=== PATIENT | female | born 1955 | race African-American/Black ===

== ENCOUNTER 2018-06-17 13:46 | Observation (INO) | payer BC, OTHER ==
[2018-06-17 14:29] LABS: Absolute Lymphocytes (CBC) 1.8 K/uL (0.7-4.9); Absolute Monocytes 0.5 K/uL (0.1-1.3); Absolute Neutrophil 7.8 K/uL (1.8-8.0); Hematocrit 40.7 % (36.0-45.0); Lymphocytes % 17.8 % (15.3-44.8); MPV 9.7 fL (7.6-11.3); Monocytes % 4.5 % (3.3-12.3); RBC Red Blood Cell Count 4.92 M/uL (3.86-4.86)
[2018-06-17 14:36] LABS: Protime INR 1.12
[2018-06-17 14:56] LABS: ALT/SGPT 21 U/L (12-78); AST/SGOT 13 U/L (15-37); Albumin 3.7 g/dL (3.4-5.0); Alkaline Phosphatase 107 U/L (45-117); BUN Blood Urea Nitrogen 19 mg/dL (7-18); Bicarbonate 29 mmol/L (21-32); Bilirubin Direct 0.1 mg/dL (0-0.2); Bilirubin Total 0.4 mg/dL (0.2-1.0); Glucose Level 330 mg/dL (74-106); Magnesium 1.8 mg/dL (1.8-2.4); NT PRO-BNP 159 pg/mL (<125); Protein, Total 7.9 g/dL (6.4-8.2); Sodium Level 139 mmol/L (136-145); Troponin (Emerg Dept Use Only) < 0.02 ng/mL (0.0-0.045)
--- NOTE | 2018-06-17 15:06 | RAD REPORT ---
EXAM DESCRIPTION: RAD - Chest Single View - 06/17/2018 2:52 pm CLINICAL HISTORY: Back pain, epigastric pain COMPARISON: June 2015 TECHNIQUE: AP portable chest image was obtained 1446 hours . FINDINGS: No peripheral focal lung parenchymal process seen. Interstitial pattern is not substantial ly different from comparison when adjusting for technique differences. Baseline pattern could mask mi nimal interstitial edema or infiltrate. Heart and vasculature are normal. No measurable pleural effusion and no pneumothorax. No acute bony abnormality seen. No acute aortic findings suspected. IMPRESSION: Chest is not substantially different from June 2015 comparison. Baseline pattern could mask earliest interstitial edema or infiltrate.
[2018-06-17] MEDS ORDERED: MORPHINE 4 MG/ML SYR ONE (15:41)
[2018-06-17] MEDS ORDERED: INSULIN -REGULAR HUMAN 50 UNIT/0.5 ML ML ONE (15:41)
[2018-06-17] MEDS ORDERED: ONDANSETRON 4 MG/2 ML VIAL ONE (15:41)
[2018-06-17] MEDS ORDERED: KCL 20 MEQ/100 mL IVPB 20 MEQ/100 ML BAG IV ONE (15:42)
[2018-06-17] MEDS ORDERED: NA CHLORIDE 0.9% 1,000 ML ONE (15:42)
[2018-06-17] MEDS ORDERED: POTASSIUM 25 MEQ EFFERV TAB ONE (15:42)
--- NOTE | 2018-06-17 15:50 | RAD REPORT ---
EXAM DESCRIPTION: CT - Angio Aorta For Dissection - 06/17/2018 3:37 pm CLINICAL HISTORY: Chest pain radiating to the back. Abdominal distention;Pain;Dissection COMPARISON: No comparisons TECHNIQUE: CT angiography of the aorta was performed with MIPs. All CT scans are performed using dose optimization technique as appropriate and may include automated exposure control or mA/KV adjustment according to patient size. FINDINGS: A left aortic arch is present with normal branching pattern of the great vessels.No acute aortic finding is seen such as aneurysm, penetrating ulcer or dissection. The celiac axis, SMA, BOB and renal arteries are widely patent. No evidence of pulmonary embolism. The lungs are clear. The liver demonstrates no focal mass or biliary dilatation.Cholecystectomy clips.The spleen, pancreas , adrenal glands and kidneys are within normal limits for arterial phase imaging.Moderate fat contain ing umbilical hernia. No bowel obstruction, free fluid or abscess.Sigmoid diverticulosis diverticulitis. Normal appendix.No pathologic enlarged lymphadenopathy identified. No fracture or worrisome bone lesion seen.Lower lumbar degenerative changes are present. IMPRESSION: No acute aortic finding is demonstrated. Moderate fat containing umbilical hernia.
[2018-06-17] MEDS ORDERED: FAMOTIDINE 20 MG/2 ML VIAL IV ONE (16:00)
--- NOTE | 2018-06-17 16:29 | ER ---
Nurse's Notes [facility] Name: Eloise Flynn Age: 63 yrs Sex: Female : 1955 Arrival Date: 06/17/2018 Time: 13:48 Bed 18 Private MD: Finesse Dunn V Diagnosis: Chest pain, unspecified;Dysphagia;Abdominal tenderness;Essential (primary) hypertension;Obesity, unspecified;Type 2 diabetes mellitus;Hypokalemia Presentation: 06/17 13:52 Presenting complaint: Patient states: epigastric discomfort and mid-low back pain x 3 ss days. Transition of care: patient was not received from another setting of care. Onset of symptoms was June 14, 2018. Risk Assessment: Do you want to hurt yourself or someone else? Patient reports no desire to harm self or others. Initial Sepsis Screen: Does the patient meet any 2 criteria? No. Patient's initial sepsis screen is negative. Does the patient have a suspected source of infection? No. Patient's initial sepsis screen is negative. Care prior to arrival: None. 13:52 Method Of Arrival: Ambulatory ss 13:52 Acuity: MAIN 3 ss Triage Assessment: 13:55 General: Appears in no apparent distress. uncomfortable. General: Behavior is calm, hj cooperative, appropriate for age. Pain: Complains of pain in back and abdomen. GI: Reports upper abdominal pain. 13:55 EENT: No signs and/or symptoms were reported regarding the EENT system. Neuro: Level of hj Consciousness is awake, alert, obeys commands, Oriented to person, place, time, situation, Appropriate for age. Cardiovascular: Capillary refill < 3 seconds Patient's skin is warm and dry. Respiratory: Airway is patent Respiratory effort is even, unlabored, Respiratory pattern is regular, symmetrical. : No signs and/or symptoms were reported regarding the genitourinary system. Derm: No signs and/or symptoms reported regarding the dermatologic system. Musculoskeletal: No signs and/or symptoms reported regarding the musculoskeletal system. Historical: - Allergies: 13:53 PENICILLINS; ss - PMHx: 13:53 Hypertension; ss - PSHx: 13:53 Hysterectomy; Cholecystectomy; removal of cyst from left breast; ss - Immunization history:: Adult Immunizations up to date. - Social history:: Smoking status: Patient/guardian denies using tobacco. - Ebola Screening: : Patient denies exposure to infectious person Patient denies travel to an Ebola-affected area in the 21 days before illness onset. Screenin:55 Abuse screen: Denies threats or abuse. Denies injuries from another. Nutritional hj screening: No deficits noted. Tuberculosis screening: No symptoms or risk factors identified. Fall Risk None identified. Assessment: 13:55 Reassessment: see triage for assessment;. hj 13:56 GI: Bowel sounds present X 4 quads. hj 14:30 Reassessment: Patient and/or family updated on plan of care and expected duration. Pain hj level reassessed. Patient is alert, oriented x 3, equal unlabored respirations, skin warm/dry/pink. awaiting results and POC; Patient states feeling better. 15:30 Reassessment: Patient and/or family updated on plan of care and expected duration. Pain hj level reassessed. Patient is alert, oriented x 3, equal unlabored respirations, skin warm/dry/pink. awaiting POC;. 16:07 Reassessment: Patient and/or family updated on plan of care and expected duration. Pain hj level reassessed. Patient is alert, oriented x 3, equal unlabored respirations, skin warm/dry/pink. awaiting POC;. 18:08 Reassessment: Patient and/or family updated on plan of care and expected duration. Pain hj level reassessed. Patient is alert, oriented x 3, equal unlabored respirations, skin warm/dry/pink. PCP in room with family; Patient states feeling better. 18:21 Reassessment: Patient and/or family updated on plan of care and expected duration. Pain hj level reassessed. Patient is alert, oriented x 3, equal unlabored respirations, skin warm/dry/pink. awaiting room placement;. 19:04 Reassessment: Patient appears in no apparent distress at this time. Patient and/or ed1 family updated on plan of care and expected duration. Pain level reassessed. Patient is alert, oriented x 3, equal unlabored respirations, skin warm/dry/pink. Patient denies pain at this time. Vital Signs: 13:53 BP 189 / 125; Pulse 95; Resp 18; Temp 98.1(TE); Pulse Ox 98% on R/A; Weight 128.82 kg; ss Height 5 ft. 0 in. (152.40 cm); Pain 8/10; 14:30 BP 169 / 98; Pulse 87; Resp 18; Pulse Ox 100% on R/A; hj 15:30 BP 172 / 88; Pulse 85; Resp 18; Pulse Ox 100% on R/A; hj 16:08 BP 170 / 95; Pulse 85; Resp 18; Pulse Ox 100% on R/A; hj 17:00 BP 168 / 90; Pulse 87; Resp 18; Pulse Ox 100% on R/A; hj 17:22 BP 156 / 88; Pulse 75; Resp 18; Pulse Ox 100% on R/A; hj 18:09 BP 152 / 85; Pulse 74; Resp 18; Pulse Ox 100% on R/A; hj 18:20 BP 164 / 89; Pulse 78; Resp 18; Pulse Ox 100% on R/A; hj 19:04 BP 148 / 86; Pulse 80; Resp 20; Temp 98.1(O); Pulse Ox 100% on R/A; Pain 0/10; ed1 20:35 BP 163 / 88; Pulse 72; Resp 18; Temp 98.4(O); Pulse Ox 100% on R/A; Pain 4/10; ed1 13:53 Body Mass Index 55.46 (128.82 kg, 152.40 cm) ED Course: 13:48 Patient arrived in ED. mr 13:48 Finesse Dunn MD is Private Physician. mr 13:53 Triage completed. ss 13:53 Arm band placed on right wrist. ss 13:55 Mahesh Almaraz RN is Primary Nurse. hj 13:56 Patient has correct armband on for positive identification. Placed in gown. Bed in low hj position. Call light in reach. Side rails up X 1. 14:01 Barak Back MD is Attending Physician. niles 14:37 EKG done, by veterinary technician assistant. reviewed by Barak Back MD. at1 14:52 XRAY Chest (1 view) In Process Unspecified. EDMS 15:37 CT Aorta for Dissection In Process Unspecified. EDMS 15:51 No provider procedures requiring assistance completed. Patient did not have IV access hj during this emergency room visit. 16:26 Finesse Dunn MD is Hospitalizing Provider. niles 19:04 Primary Nurse role handed off by Mahesh Almaraz, SHELLI ed1 19:04 Lopez, Janny, RN is Primary Nurse. ed1 19:04 Resting quietly. Awaiting bed assignment. ed1 Administered Medications: 15:46 Drug: NS 0.9% 1000 ml Route: IV; Rate: 125 ml/hr; Site: left antecubital; hj 15:46 Drug: morphine 4 mg Route: IVP; Site: left antecubital; hj 16:47 Follow up: Response: No adverse reaction; Pain is decreased hj 15:46 Drug: Zofran 4 mg Route: IVP; Site: left antecubital; hj 16:35 Follow up: Response: No adverse reaction hj 16:36 Follow up: Response: No adverse reaction hj 15:46 Drug: Potassium Chloride 20 mEq Route: IV; Rate: per protocol; Site: left antecubital; hj 15:46 Drug: Potassium Effervescent Tablet 25 mEq Route: PO; hj 16:35 Follow up: Response: No adverse reaction hj 15:46 Drug: Pepcid 20 mg Route: IVP; Site: left antecubital; hj 16:35 Follow up: Response: No adverse reaction hj 15:47 Drug: Insulin Regular Human 6 units {Co-Signature: georgie (Mahesh Almaraz RN).} Route: IVP; jl7 Site: left antecubital; 16:35 Follow up: Response: No adverse reaction georgie Point of Care Testing: Blood Glucose: 17:00 Blood Glucose: 212 mg/dL; georgie Ranges: Outcome: 16:28 Decision to Hospitalize by Provider. [facility] 21:13 Admitted to Med/surg accompanied by tech, family with patient, via stretcher, room 211, ed1 with chart, Report called to SHELLI Caro 21:13 Condition: good 21:13 Discharge instructions given to patient, family, Instructed on the need for admit, Demonstrated understanding of instructions. 21:14 Patient left the ED. ed1 Signatures: Dispatcher [employer] EDBarak Saeed MD MD cha Rivera, Mary mr Smirch, Shelby, RN RN ss Riggs, Erika, RN RN ed1 Amelia Higgins, forming process line worker EKG Tat1 Mahesh Almaraz RN RN hj Leal, Jahala, RN RN jl7 Mahesh jacques
--- NOTE | 2018-06-17 16:29 | EDPHYS ---
Physician Documentation [facility] Name: Eloise Flynn Age: 63 yrs Sex: Female : 1955 Arrival Date: 06/17/2018 Time: 13:48 Bed 18 Private MD: Finesse Dunn V ED Physician Barak Back HPI: 06/17 15:24 This 63 yrs old Black Female presents to ER via Ambulatory with complaints of Abdominal niles Pain, Back Pain. 15:24 The patient presents with pain that is acute, that is chronic. The symptoms are located niles in the low back, lumbar area, left low back and right low back. Onset: The symptoms/episode began/occurred just prior to arrival. The pain does not radiate. Historical: - Allergies: 13:53 PENICILLINS; ss - PMHx: 13:53 Hypertension; ss - PSHx: 13:53 Hysterectomy; Cholecystectomy; removal of cyst from left breast; ss - Immunization history:: Adult Immunizations up to date. - Social history:: Smoking status: Patient/guardian denies using tobacco. - Ebola Screening: : Patient denies exposure to infectious person Patient denies travel to an Ebola-affected area in the 21 days before illness onset. ROS: 15:24 Eyes: Negative for injury, pain, redness, and discharge, ENT: Negative for injury, niles pain, and discharge, Neck: Negative for injury, pain, and swelling, Respiratory: Negative for shortness of breath, cough, wheezing, and pleuritic chest pain, : Negative for injury, bleeding, discharge, and swelling, MS/Extremity: Negative for injury and deformity, Skin: Negative for injury, rash, and discoloration, Neuro: Negative for headache, weakness, numbness, tingling, and seizure, Psych: Negative for depression, anxiety, suicide ideation, homicidal ideation, and hallucinations, Allergy/Immunology: Negative for hives, rash, and allergies, Endocrine: Negative for neck swelling, polydipsia, polyuria, polyphagia, and marked weight changes, Hematologic/Lymphatic: Negative for swollen nodes, abnormal bleeding, and unusual bruising. 15:24 Constitutional: Positive for malaise. 15:24 Cardiovascular: Positive for chest pain. 15:24 Respiratory: Negative for cough, dyspnea on exertion. 15:24 Abdomen/GI: Positive for abdominal pain, of the epigastric area, right upper quadrant and left upper quadrant. Exam: 15:24 Constitutional: This is a well developed, well nourished patient who is awake, alert, niles and in no acute distress. Head/Face: Normocephalic, atraumatic. Eyes: Pupils equal round and reactive to light, extra-ocular motions intact. Lids and lashes normal. Conjunctiva and sclera are non-icteric and not injected. Cornea within normal limits. Periorbital areas with no swelling, redness, or edema. ENT: Nares patent. No nasal discharge, no septal abnormalities noted. Tympanic membranes are normal and external auditory canals are clear. Oropharynx with no redness, swelling, or masses, exudates, or evidence of obstruction, uvula midline. Mucous membranes moist. Neck: Trachea midline, no thyromegaly or masses palpated, and no cervical lymphadenopathy. Supple, full range of motion without nuchal rigidity, or vertebral point tenderness. No Meningismus. Chest/axilla: Normal chest wall appearance and motion. Nontender with no deformity. No lesions are appreciated. Cardiovascular: Regular rate and rhythm with a normal S1 and S2. No gallops, murmurs, or rubs. Normal PMI, no JVD. No pulse deficits. Respiratory: Lungs have equal breath sounds bilaterally, clear to auscultation and percussion. No rales, rhonchi or wheezes noted. No increased work of breathing, no retractions or nasal flaring. Back: No spinal tenderness. No costovertebral tenderness. Full range of motion. Female : Normal external genitalia. Skin: Warm, dry with normal turgor. Normal color with no rashes, no lesions, and no evidence of cellulitis. MS/ Extremity: Pulses equal, no cyanosis. Neurovascular intact. Full, normal range of motion. Neuro: Awake and alert, GCS 15, oriented to person, place, time, and situation. Cranial nerves II-XII grossly intact. Motor strength 5/5 in all extremities. Sensory grossly intact. Cerebellar exam normal. Normal gait. Psych: Awake, alert, with orientation to person, place and time. Behavior, mood, and affect are within normal limits. 15:24 Abdomen/GI: Inspection: abdomen appears normal, Bowel sounds: normal, Palpation: mild abdominal tenderness, Liver: no appreciated palpable abnormalities, Hernia: not appreciated. Vital Signs: 13:53 BP 189 / 125; Pulse 95; Resp 18; Temp 98.1(TE); Pulse Ox 98% on R/A; Weight 128.82 kg; ss Height 5 ft. 0 in. (152.40 cm); Pain 8/10; 14:30 BP 169 / 98; Pulse 87; Resp 18; Pulse Ox 100% on R/A; hj 15:30 BP 172 / 88; Pulse 85; Resp 18; Pulse Ox 100% on R/A; hj 16:08 BP 170 / 95; Pulse 85; Resp 18; Pulse Ox 100% on R/A; hj 17:00 BP 168 / 90; Pulse 87; Resp 18; Pulse Ox 100% on R/A; hj 17:22 BP 156 / 88; Pulse 75; Resp 18; Pulse Ox 100% on R/A; hj 18:09 BP 152 / 85; Pulse 74; Resp 18; Pulse Ox 100% on R/A; hj 18:20 BP 164 / 89; Pulse 78; Resp 18; Pulse Ox 100% on R/A; hj 19:04 BP 148 / 86; Pulse 80; Resp 20; Temp 98.1(O); Pulse Ox 100% on R/A; Pain 0/10; ed1 20:35 BP 163 / 88; Pulse 72; Resp 18; Temp 98.4(O); Pulse Ox 100% on R/A; Pain 4/10; ed1 13:53 Body Mass Index 55.46 (128.82 kg, 152.40 cm) ss MDM: 14:01 Patient medically screened. [facility] 15:26 Data reviewed: vital signs, nurses notes, lab test result(s), EKG, radiologic studies, [facility] CT scan, plain films. 06/17 14:18 Order name: Basic Metabolic Panel; Complete Time: 15:21 06/17 14:18 Order name: CBC with Diff; Complete Time: 15:21 06/17 14:18 Order name: LFT's; Complete Time: 15:21 06/17 14:18 Order name: Magnesium; Complete Time: 15:21 06/17 14:18 Order name: NT PRO-BNP; Complete Time: 15:21 06/17 14:18 Order name: PT-INR; Complete Time: 15:21 06/17 14:18 Order name: Troponin (emerg Dept Use Only); Complete Time: 15:21 06/17 15:21 Order name: Lipase; Complete Time: 16:17 [facility] 06/17 15:21 Order name: Urine Culture [facility] 06/17 16:46 Order name: Urine Dipstick--Ancillary (enter results) 06/17 17:08 Order name: Urine Dipstick-Ancillary [facility] 06/17 18:25 Order name: Troponin I [facility] 06/17 18:46 Order name: Potassium [facility] 06/17 21:04 Order name: Potassium wi 06/17 13:55 Order name: EKG; Complete Time: 13:55 06/17 13:55 Order name: EKG - Nurse/Tech; Complete Time: 14:44 06/17 14:18 Order name: XRAY Chest (1 view); Complete Time: 15:21 06/17 14:18 Order name: Cardiac monitoring; Complete Time: 14:19 06/17 15:21 Order name: CT Aorta for Dissection; Complete Time: 16:17 [facility] 06/17 16:33 Order name: CONS Physician Consult [facility] 06/17 16:33 Order name: CONS Physician Consult [facility] 06/17 21:13 Order name: Potassium [facility] 06/17 14:18 Order name: EKG - Nurse/Tech; Complete Time: 14:43 06/17 14:18 Order name: IV Saline Lock; Complete Time: 14:19 06/17 14:18 Order name: Labs collected and sent; Complete Time: 14:19 06/17 14:18 Order name: O2 Per Protocol; Complete Time: 14:19 06/17 14:18 Order name: O2 Sat Monitoring; Complete Time: 14:19 06/17 15:21 Order name: Urine Dipstick-Ancillary (obtain specimen); Complete Time: 16:48 [facility] Administered Medications: 15:46 Drug: NS 0.9% 1000 ml Route: IV; Rate: 125 ml/hr; Site: left antecubital; hj 15:46 Drug: morphine 4 mg Route: IVP; Site: left antecubital; hj 16:47 Follow up: Response: No adverse reaction; Pain is decreased hj 15:46 Drug: Zofran 4 mg Route: IVP; Site: left antecubital; hj 16:35 Follow up: Response: No adverse reaction hj 16:36 Follow up: Response: No adverse reaction hj 15:46 Drug: Potassium Chloride 20 mEq Route: IV; Rate: per protocol; Site: left antecubital; hj 15:46 Drug: Potassium Effervescent Tablet 25 mEq Route: PO; hj 16:35 Follow up: Response: No adverse reaction hj 15:46 Drug: Pepcid 20 mg Route: IVP; Site: left antecubital; hj 16:35 Follow up: Response: No adverse reaction 15:47 Drug: Insulin Regular Human 6 units {Co-Signature: georgie (Mahesh Almaraz RN).} Route: IVP; jl7 Site: left antecubital; 16:35 Follow up: Response: No adverse reaction georgie Point of Care Testing: Blood Glucose: 17:00 Blood Glucose: 212 mg/dL; georgie Ranges: Critical Glucose Levels:Adult <50 mg/dl or >400 mg/dl <40 mg/dl or >180 mg/dl Disposition: 06/17/18 16:28 Hospitalization ordered by Finesse Dunn for Observation. Preliminary diagnosis are Chest pain, unspecified, Dysphagia, Abdominal tenderness, Essential (primary) hypertension, Obesity, unspecified, Type 2 diabetes mellitus, Hypokalemia. - Bed requested for Telemetry/MedSurg (observation). - Status is Observation. ed1 - Condition is Fair. - Problem is new. - Symptoms have improved. UTI on Admission? No Signatures: Dispatcher [employer] EDMS Barak Back MD MD cha Smirch, Shelby, RN RN ss Riggs, Erika, RN RN ed1 Mahesh Almaraz RN RN hj Leal, Jahala, RN RN jl7 Jessica Elias RN RN df Mahesh jacques Corrections: (The following items were deleted from the chart) 19:47 16:28 Hospitalization Ordered by Finesse Dunn MD for Observation. Preliminary diagnosis df is Chest pain, unspecified; Dysphagia; Abdominal tenderness; Essential (primary) hypertension; Obesity, unspecified; Type 2 diabetes mellitus; Hypokalemia. Bed requested for Telemetry/MedSurg (observation). Status is Observation. Condition is Fair. Problem is new. Symptoms have improved. UTI on Admission? No. niles 21:14 19:47 06/17/2018 16:28 Hospitalization Ordered by Finesse Dunn MD for Observation. ed1 Preliminary diagnosis is Chest pain, unspecified; Dysphagia; Abdominal tenderness; Essential (primary) hypertension; Obesity, unspecified; Type 2 diabetes mellitus; Hypokalemia. Bed requested for Telemetry/MedSurg (observation). Status is Observation. Condition is Fair. Problem is new. Symptoms have improved. UTI on Admission? No. df
[2018-06-17] MEDS ORDERED: ACETAMINOPHEN 325 MG TABLET PO PRN (16:32)
[2018-06-17] MEDS ORDERED: ONDANSETRON 4 MG/2 ML VIAL IV PRN (16:32)
[2018-06-17] MEDS ORDERED: SODIUM CHLORIDE 0.9% 10ML INJ IV PRN (16:33)
[2018-06-17] MEDS ORDERED: GLUCAGON 1 MG/VIAL IM PRN (16:34)
[2018-06-17] MEDS ORDERED: D50W 25 GM/50 ML SYRINGE IV PRN (16:34)
[2018-06-17] MEDS: NS KCL 20MEQ 20 MEQ/1,000 ML BAG IV SCH (17:00)
[2018-06-17 17:08] LABS: Urine Blood NEGATIVE (NEG); Urine Glucose 2+ (NEG); Urine Protein 1+ (NEG)
--- NOTE | 2018-06-17 18:29 | P.HP ---
Certification for Inpatient Patient admitted to: Observation With expected LOS: <2 Midnights Practitioner: I am a practitioner with admitting privileges, knowledge of patient current condition, hospital course, and medical plan of care. Services: Services provided to patient in accordance with Admission requirements found in Title 42 Section 412.3 of the Code of Federal Regulations Patient History Date of Service: 06/17/18 Reason for admission: BURNING PAIN RADIATING TO BACK History of Present Illness: MS. COSTA HAS BURNING CHEST PAIN RADIATING TO BACK FOR TWO DAYS. SHE CALLED DR. LUIS HER GI DOCTOR BUT HE HAS QUIT TAKING HER INSURANCE. SHE COMES TO ER. SHE HAS SOME NAUSEA AND VOMITING ABOUT 3 TIMES IN TWO DAYS. Allergies Penicillins Allergy (Severe, Verified 05/01/11 08:21) airway obstruction Home Medications: Atenolol 1 tab PO BEDTIME 06/25/15 Nisoldipine 1 tab PO DAILY 06/25/15 Olmesartan/Hydrochlorothiazide [Benicar Hct 40-12.5 mg Tablet] 1 tab PO DAILY Tramadol HCl 1 tab PO BID 06/25/15 Potassium Oral Tab [Klor-Con 10 mEq Tab*] 10 meq PO DAILY 90 Days tab 06/28/15 - Past Medical/Surgical History Diabetic: No -: HTN -: lap Marixa -: cyst removed from (L) breast -: hysterectomy - Family History Mother -: Hypertension, Diabetes, Stroke Father -: Heart disease Sister -: Heart disease, Diabetes Brother -: Heart disease, Cancer - Social History Alcohol use: No CD- Drugs: No Caffeine use: Yes Review of Systems 10-point ROS is otherwise unremarkable Gastrointestinal: Nausea, Vomiting, No Distention Physical Examination - Physical Exam General: Alert, Mild distress, Obese HEENT: Atraumatic, PERRLA, Mucous membr. moist/pink, EOMI, Sclerae nonicteric Neck: Supple, 2+ carotid pulse no bruit, No LAD, Without JVD or thyroid abnormality Respiratory: Clear to auscultation bilaterally, Normal air movement Cardiovascular: Regular rate/rhythm, Normal S1 S2 Gastrointestinal: Normal bowel sounds, Tenderness (EPIG MILD) Musculoskeletal: No tenderness Integumentary: No rashes Neurological: Normal gait, Normal speech, Normal strength at 5/5 x4 extr, Normal tone, Normal affect Lymphatics: No axilla or inguinal lymphadenopathy - Studies Laboratory Data (last 24 hrs) 06/17/18 14:20: Lipase 158 06/17/18 14:20: PT 13.2 H, INR 1.12 06/17/18 14:20: WBC 10.3, Hgb 13.8, Hct 40.7, Plt Count 299 06/17/18 14:20: Sodium 139, Potassium 3.0 L, BUN 19 H, Creatinine 0.98, Glucose 330 H, Magnesium 1.8, Total Bilirubin 0.4, AST 13 L, ALT 21, Alkaline Phosphatase 107 Assessment and Plan - Problems (Diagnosis) (1) Epigastric pain Current Visit: Yes Status: Acute Plan: MOSTLY FROM ACID, VS VIRAL SYNDROME RAISE PROTONIX IV BID. DC IN AM POSSIBLE. HER PAIN HAS LOW POSSIBILTY OF BEING CARDIAC IN ORIGIN. (2) GERD (gastroesophageal reflux disease) Current Visit: Yes Status: Acute Plan: IV PROTONIX Qualifiers: Esophagitis presence: with esophagitis Qualified Code(s): K21.0 - Gastro- esophageal reflux disease with esophagitis (3) Nausea & vomiting Current Visit: No Status: Acute Plan: SHOULD IMPROVE NO MECHANICAL ISSUES. - Advance Directives Does patient have a Living Will: No Does patient have a Durable POA for Healthcare: No
[2018-06-17] MEDS ORDERED: NS KCL 20MEQ 1,000 ML IV ONE (18:54)
[2018-06-17 22:10] VITALS: BMI 54.6
[2018-06-17] MEDS: cloNIDine HCl 0.1 MG TAB PO PRN (22:21)
[2018-06-17] MEDS: PANTOPRAZOLE 40 MG INJ IVP SCH (22:24)
[2018-06-17] MEDS: INSULIN -REGULAR HUMAN 50 UNIT/0.5 ML ML SQ SCH (22:53)
[2018-06-18] MEDS: MORPHINE 4 MG/ML SYR IV PRN ×3 (01:09→22:16)
[2018-06-18 05:12] LABS: Absolute Lymphocytes (CBC) 1.6 K/uL (0.7-4.9); Absolute Monocytes 0.4 K/uL (0.1-1.3); Basophils % 0.8 % (0-1.3); Eosinophils % 2.1 % (0-4.4); Hematocrit 36.1 % (36.0-45.0); Lymphocytes % 22.2 % (15.3-44.8); MPV 9.7 fL (7.6-11.3); Monocytes % 5.7 % (3.3-12.3); RBC Red Blood Cell Count 4.36 M/uL (3.86-4.86)
[2018-06-18 05:25] LABS: BUN Blood Urea Nitrogen 14 mg/dL (7-18); Bicarbonate 32 mmol/L (21-32); Glucose Level 151 mg/dL (74-106); Potassium 3.6 mmol/L (3.5-5.1); Sodium Level 145 mmol/L (136-145)
[2018-06-18] MEDS: NS KCL 20MEQ 20 MEQ/1,000 ML BAG IV SCH ×2 (06:55→13:00)
[2018-06-18] MEDS: INSULIN -REGULAR HUMAN 50 UNIT/0.5 ML ML SQ SCH ×4 (07:30→22:01)
--- NOTE | 2018-06-18 08:11 | RAD REPORT ---
EXAM DESCRIPTION: RAD - Chest Single View - 06/18/2018 6:43 am CLINICAL HISTORY: Chest Pain Chest pain. COMPARISON: Chest Single View dated 06/17/2018; Chest Pa And Lat (2 Views) dated 06/25/2015; CHEST SING LE VIEW dated 08/05/2014; CHEST SINGLE VIEW dated 04/06/2013 FINDINGS: Portable technique limits examination quality. The lungs are grossly clear. The heart is normal in size. No displaced fractures. IMPRESSION: No acute intrathoracic process suspected.
[2018-06-18] MEDS ORDERED: PANTOPRAZOLE 40 MG INJ IVP SCH (09:00)
[2018-06-18] MEDS: ASPIRIN EC 81 MG TAB PO SCH (09:00)
[2018-06-18] MEDS: PANTOPRAZOLE 40 MG INJ IVP SCH ×2 (09:22→22:15)
--- NOTE | 2018-06-18 09:31 | CON ---
History Of Present Illness: Mrs. Flynn is 63 years old. She came to the hospital with epigastric pa in. It is well below the xiphoid. She also has lower abdominal pain. It has been going on for beatrice ral days without any readmittance, and since being in the hospital, it is improved slightly. Her out patient medications did not include any kind of antacid, but she is getting IV Protonix 40 b.i.d. now . She does not have a history of heart disease. In 2011, a cardiac cath was normal; it was after a stress test was abnormal, so she has a history of a false-positive nuclear stress test. She does not have diabetes, dyslipidemia, never had myocardial infarction, stroke, not having chest pain, or abdo rosalie pain. She has a history of diverticulitis and diverticulosis. Home Medications: Atenolol, tramadol, nisoldipine, olmesartan, hydrochlorothiazide, and potassium ch loride. Allergies: SHE IS ALLERGIC TO PENICILLIN. Physical Examination: General: She is obese, alert, oriented, pleasant, cooperative, not in distress. Vital Signs: 5 feet tall, 280 pounds. HEENT: Normal. Lungs: Clear. Cardiac: Within normal limits. Abdomen: Soft. Extremities: Normal. Imaging: EKG does not show infarction, injury, or ischemia. Impression: My impression is that Mrs. Flynn is not having coronary artery disease or any symptoms t hat sound remotely like coronary artery disease. I am not going to recommend a cardiac workup at this time on Mrs. Flynn. RUTH/JIMMY Voice ID: [id number] Report ID: [id number]
[2018-06-18] MEDS: CIPROFLOXACIN 400mg IV 400 MG/200 ML BAG IV SCH ×2 (11:00→22:23)
[2018-06-18] MEDS ORDERED: MINERAL OIL ENEMA 135 ML BTL PR SCH (11:00)
--- NOTE | 2018-06-18 11:41 | EKG ---
Test Date: 2018-06-17 Test Time: 14:09:59 Metal Spray Operator: TERESA MEASUREMENT RESULTS: Intervals: Rate: 94 DE: 150 QRSD: 88 QT: 406 QTc: 507 Mcgrath: P: 36 DE: 150 QRS: -32 T: 23 INTERPRETIVE STATEMENTS: Sinus rhythm with occasional premature ventricular complexes and premature atrial complexes Left axis deviation Nonspecific ST abnormality Prolonged QT Abnormal ECG Compared to ECG 06/25/2015 12:46:14 Atrial premature complex(es) now present Ventricular premature complex(es) now present Left-axis deviation now present ST (T wave) deviation now present Prolonged QT interval now present Sinus arrhythmia no longer present Electronically Signed On 06-17-18 16:05:59 CDT by Ricardo Pagan
--- NOTE | 2018-06-18 11:43 | EKG ---
Test Date: 2018-06-18 Test Time: 08:06:20 Prizer Hand: SHARAN MEASUREMENT RESULTS: Intervals: Rate: 71 LA: 166 QRSD: 82 QT: 430 QTc: 467 [place]bury: P: 49 LA: 166 QRS: -25 T: -2 INTERPRETIVE STATEMENTS: Normal sinus rhythm Non specific T abnormality Abnormal ECG Compared to ECG 06/17/2018 14:09:59 Atrial premature complex(es) no longer present Ventricular premature complex(es) no longer present Electronically Signed On 06-18-18 10:00:43 CDT by Ricardo Pagan
--- NOTE | 2018-06-18 13:00 | P.PN ---
Subjective Date of Service: 06/18/18 Chief Complaint: DIFFUSE ABDOMEN PAIN. Subjective: No new changes Review of Systems 10-point ROS is otherwise unremarkable General: Weakness, Malaise Gastrointestinal: Abdominal Pain Physical Examination - Vital Signs Temperature: 97.1 F Blood Pressure: 137/74 Pulse: 65 Respirations: 16 Pulse Ox (%): 97 - Physical Exam General: Alert HEENT: Atraumatic, PERRLA, EOMI Neck: Supple, JVD not distended Respiratory: Clear to auscultation bilaterally, Normal air movement Cardiovascular: Regular rate/rhythm, Normal S1 S2 Gastrointestinal: Tenderness (DIFFUSE MILD TO MODERATE.) Musculoskeletal: No tenderness Integumentary: No rashes Neurological: Normal speech, Normal tone, Normal affect Lymphatics: No axilla or inguinal lymphadenopathy - Studies Laboratory Data (last 24 hrs) 06/17/18 14:20: Lipase 158 06/17/18 14:20: PT 13.2 H, INR 1.12 06/17/18 14:20: WBC 10.3, Hgb 13.8, Hct 40.7, Plt Count 299 06/17/18 14:20: Sodium 139, Potassium 3.0 L, BUN 19 H, Creatinine 0.98, Glucose 330 H, Magnesium 1.8, Total Bilirubin 0.4, AST 13 L, ALT 21, Alkaline Phosphatase 107 Medications List Reviewed: Yes Assessment And Plan - Current Problems (Diagnosis) (1) Epigastric pain Current Visit: Yes Status: Acute Plan: MOSTLY FROM ACID, VS VIRAL SYNDROME RAISE PROTONIX IV BID. DC IN AM POSSIBLE. HER PAIN HAS LOW POSSIBILTY OF BEING CARDIAC IN ORIGIN. (2) GERD (gastroesophageal reflux disease) Current Visit: Yes Status: Acute Plan: IV PROTONIX Qualifiers: Esophagitis presence: with esophagitis Qualified Code(s): K21.0 - Gastro- esophageal reflux disease with esophagitis (3) Nausea & vomiting Current Visit: No Status: Acute Plan: SHOULD IMPROVE NO MECHANICAL ISSUES. (4) Diffuse abdominal pain Current Visit: Yes Status: Acute Plan: DIVERICULITIS POSSIBLE. I TALKED TO DR DOYLE TO RULE OUT DIVERTICULITIS. HE TOLD ME YES- LOOKS LIKE LOTS OF DIVERTICULOSIS BUT NO DIVERTICULITIS. CELIAC AND MESENTERIC ARTERIES ARE GOOD.
[2018-06-18] MEDS: METRONIDAZOLE 500mg IVPB 500 MG/100 ML BAG IV SCH ×2 (15:00→21:57)
[2018-06-18] MEDS: ATENOLOL 50 MG TAB PO SCH (22:17)
[2018-06-19] MEDS: NS KCL 20MEQ 20 MEQ/1,000 ML BAG IV SCH ×3 (01:05→19:00)
[2018-06-19] MEDS: METRONIDAZOLE 500mg IVPB 500 MG/100 ML BAG IV SCH ×2 (08:11→21:42)
[2018-06-19] MEDS: CIPROFLOXACIN 400mg IV 400 MG/200 ML BAG IV SCH ×2 (08:12→21:42)
[2018-06-19] MEDS: INSULIN -REGULAR HUMAN 50 UNIT/0.5 ML ML SQ SCH ×4 (08:37→21:41)
[2018-06-19] MEDS ORDERED: VALSARTAN 160 MG TAB PO SCH (09:00)
[2018-06-19] MEDS: NISOLDIPINE PO SCH (09:00)
[2018-06-19] MEDS: PANTOPRAZOLE 40 MG INJ IVP SCH ×2 (11:01→22:22)
[2018-06-19] MEDS ORDERED: NA CHLORIDE 0.9% 1,000 ML ONE (11:41)
[2018-06-19] MEDS ORDERED: PROPOFOL 200 MG/20 ML VIAL IV ONE (13:21)
[2018-06-19] MEDS ORDERED: LIDOCAINE 1% MPF 5 ML VIAL ONE (13:21)
--- NOTE | 2018-06-19 13:23 | ENDO RPT ---
[address], [address] EGD PROCEDURE REPORT EXAM DATE: 06/19/2018 PATIENT NAME: Eloise Flynn MR#: [id number] BIRTHDATE: 1955 ATTENDING: Miguelito Almeida Dr STATUS: inpatient - [facility] DIRECTOR: Sarah Davis RN and Kelsy Patterson INDICATIONS: The patient is a 63 yr old Female here for an EGD due to mid epigastric abdominal pain, nausea and vomiting, GERD, and chest pain PROCEDURE PERFORMED: EGD with biopsy MEDICATIONS: Per Anesthesia. TOPICAL ANESTHETIC: none CONSENT: The patient understands the risks and benefits of the procedure and understands that these risks include, but are not limited to: sedation, allergic reaction, infection, perforation and/or bleeding. Alternative means of evaluation and treatment include, among others: physical exam, x-rays, and/or surgical intervention. The patient elects to proceed with this endoscopic procedure. DESCRIPTION OF PROCEDURE: During intra-op preparation period all mechanical medical equipment was checked for proper function. Hand hygiene and appropriate measures for infection prevention was taken. Procedure, possible complications, and alternatives including but not limited to the possibility of bleeding, perforation, tear, infection, sepsis, need for surgery, need for blood transfusion, and anesthesia related complications were explained to the patient. After the risks, benefits and alternatives of the procedure were thoroughly explained, Informed consent was verified, confirmed and timeout was successfully executed by the treatment team. The patient was placed in the left lateral position. The patient was anesthetized with topical anesthesia. Through the anesthetized oropharyngeal area, the scope was passed without any difficulty. The [id number] ([id number]) endoscope was introduced through the mouth and advanced to the second portion of the duodenum. Retroflexed views revealed no abnormalities. The gastroscope was then slowly withdrawn and removed. A small sliding hiatal hernia was found. Mild to moderate gastritis was found in the body and the antrum of the stomach. Multiple biopsies were obtained and sent to pathology. ADVERSE EVENTS: There were no complications. IMPRESSIONS: 1. Small sliding hiatal hernia 2. Mild to moderate gastritis in the body and the antrum of the stomach, s/p biopsies RECOMMENDATIONS: 1. await biopsy results 2. acid suppression therapy REPEAT EXAM: Miguelito Almeida Dr eSigned: Miguelito Almeida Dr 06/19/2018 1:22 PM cc: Finesse Dunn CPT CODES: ICD9 CODES: PATIENT NAME: Eloise Flynn MR#: [id number]
[2018-06-19] MEDS: MORPHINE 4 MG/ML SYR IV PRN (14:50)
[2018-06-19] MEDS: METOCLOPRAMIDE 10 MG/2mL INJ IV SCH ×2 (14:51→17:44)
[2018-06-19] MEDS: VALSARTAN 80 MG TAB PO SCH (14:51)
[2018-06-19] MEDS: POTASSIUM CL SA 10 MEQ TAB PO SCH (14:52)
[2018-06-19] MEDS: ASPIRIN EC 81 MG TAB PO SCH (14:52)
[2018-06-19] MEDS: PANTOPRAZOLE 40MG TABLET PO SCH (14:52)
[2018-06-19] MEDS: hydroCHLOROthiazide 12.5 MG CAP PO SCH (14:52)
[2018-06-19] MEDS ORDERED: MAGNESIUM CITRATE 300 ML BOT PO SCH (15:00)
[2018-06-19] MEDS ORDERED: GOLYTELY 4000 ML PO SCH (15:00)
--- NOTE | 2018-06-19 21:27 | P.PN ---
Subjective Date of Service: 06/19/18 Chief Complaint: DIFFUSE ABDOMEN PAIN. Subjective: Improving SHE IS FEELING BETTER. DR GIBBOSN WANTED TO DO EGD. DISCHARGE DEPENDS ON HIM NOW. HE DOES NOT TAKE HER INSURANCE SO SHE WILL HAVE TO FIND A NEW GI DOCTOR. Review of Systems 10-point ROS is otherwise unremarkable Gastrointestinal: Nausea Physical Examination - Vital Signs Temperature: 97.4 F Blood Pressure: 141/63 Pulse: 56 Respirations: 16 Pulse Ox (%): 100 - Physical Exam General: Alert, Mild distress, Obese HEENT: Atraumatic, PERRLA, EOMI Neck: Supple, JVD not distended Respiratory: Clear to auscultation bilaterally, Normal air movement Cardiovascular: Regular rate/rhythm, Normal S1 S2 Gastrointestinal: Normal bowel sounds, No tenderness Musculoskeletal: No tenderness Integumentary: No rashes Neurological: Normal speech, Normal tone, Normal affect Lymphatics: No axilla or inguinal lymphadenopathy - Studies Medications List Reviewed: Yes Assessment And Plan - Current Problems (Diagnosis) (1) Epigastric pain Current Visit: Yes Status: Acute Plan: MOSTLY FROM ACID, VS VIRAL SYNDROME RAISE PROTONIX IV BID. DC IN AM POSSIBLE. HER PAIN HAS LOW POSSIBILTY OF BEING CARDIAC IN ORIGIN. MILD TO MODERATE GASTRITIS SHE IS ALREADY ON PROTONIX IV BID. SHE IS STABLE. I HAD WRITTEN DISCHARGE ORDERS WITH ORAL ABX. DC PLAN PER DR. LUIS. (2) GERD (gastroesophageal reflux disease) Current Visit: Yes Status: Acute Plan: IV PROTONIX Qualifiers: Esophagitis presence: with esophagitis Qualified Code(s): K21.0 - Gastro- esophageal reflux disease with esophagitis (3) Nausea & vomiting Current Visit: No Status: Acute Plan: SHOULD IMPROVE NO MECHANICAL ISSUES. (4) Diffuse abdominal pain Current Visit: Yes Status: Acute Plan: DIVERICULITIS POSSIBLE. I TALKED TO DR DOYLE TO RULE OUT DIVERTICULITIS. HE TOLD ME YES- LOOKS LIKE LOTS OF DIVERTICULOSIS BUT NO DIVERTICULITIS. CELIAC AND MESENTERIC ARTERIES ARE GOOD.
[2018-06-19] MEDS: ATENOLOL 50 MG TAB PO SCH (21:41)
[2018-06-20] MEDS: METOCLOPRAMIDE 10 MG/2mL INJ IV SCH (00:36)
[2018-06-20] MEDS: NS KCL 20MEQ 20 MEQ/1,000 ML BAG IV SCH ×2 (03:43→15:00)
[2018-06-20] MEDS: INSULIN -REGULAR HUMAN 50 UNIT/0.5 ML ML SQ SCH ×3 (07:30→16:30)
[2018-06-20] MEDS: PANTOPRAZOLE 40MG TABLET PO SCH (08:34)
[2018-06-20] MEDS: POTASSIUM CL SA 10 MEQ TAB PO SCH (08:34)
[2018-06-20] MEDS: PANTOPRAZOLE 40 MG INJ IVP SCH (08:34)
[2018-06-20] MEDS: hydroCHLOROthiazide 12.5 MG CAP PO SCH (08:35)
[2018-06-20] MEDS: VALSARTAN 80 MG TAB PO SCH (08:35)
[2018-06-20] MEDS: cloNIDine HCl 0.1 MG TAB PO PRN (08:35)
[2018-06-20] MEDS: METRONIDAZOLE 500mg IVPB 500 MG/100 ML BAG IV SCH (08:36)
[2018-06-20] MEDS: CIPROFLOXACIN 400mg IV 400 MG/200 ML BAG IV SCH (08:37)
[2018-06-20] MEDS: ASPIRIN EC 81 MG TAB PO SCH (08:38)
[2018-06-20] MEDS: NISOLDIPINE PO SCH (08:39)
[2018-06-20] MEDS ORDERED: NA CHLORIDE 0.9% 1,000 ML ONE (11:58)
[2018-06-20] MEDS ORDERED: LIDOCAINE 1% MPF 5 ML VIAL ONE (12:13)
[2018-06-20] MEDS ORDERED: PROPOFOL 200 MG/20 ML VIAL IV ONE (12:13)
--- NOTE | 2018-06-20 12:22 | ENDO RPT ---
[address], [address] COLONOSCOPY PROCEDURE REPORT EXAM DATE: 06/20/2018 PATIENT NAME: Eloise Flynn MR #: [id number] BIRTHDATE: 1955 ATTENDING: Miguelito Almeida Dr STATUS: outpatient CONTINUOUS LINTER DRIER OPERATOR: Norma Tirado RN and Kelsy Patterson INDICATIONS: The patient is a 63 yr old Female here for a colonoscopy due to abdominal pain and family history of colon cancer PROCEDURE PERFORMED: Colonoscopy MEDICATIONS: Per Anesthesia. ESTIMATED BLOOD LOSS: None CONSENT: The patient understands the risks and benefits of the procedure and understands that these risks include, but are not limited to: sedation, allergic reaction, infection, perforation and/or bleeding. Alternative means of evaluation and treatment include, among others: physical exam, x-rays, and/or surgical intervention. The patient elects to proceed with this endoscopic procedure. DESCRIPTION OF PROCEDURE: During intra-op preparation period all mechanical medical equipment was checked for proper function. Hand hygiene and appropriate measures for infection prevention was taken. Procedure, possible complications, alternatives including, but not limited to possibility of bleeding, perforation, tear, infection, sepsis, need for surgery, need for blood transfusion, were explained to the patient. After the risks, benefits and alternatives of the procedure were thoroughly explained, Informed consent was verified, confirmed and timeout was successfully executed by the treatment team. The patient was placed in the left lateral position. A digital rectal exam was performed and revealed no abnormalities of the rectum. After appropriate level of anesthesia, the scope was passed. The [id number] ([id number]) endoscope was introduced through the anus and advanced to the proximal transverse colon. The quality of the prep was fair. The instrument was then slowly withdrawn as the colon was fully examined. Scope withdrawal time was 7 minutes. COLON FINDINGS: Moderate diverticulosis was noted throughout the entire examined colon. No bleeding was noted from the diverticulosis. Small internal hemorrhoids were found. Retroflexed views revealed small hemorrhoids. The scope was then completely withdrawn from the patient and the procedure terminated. ADVERSE EVENTS: There were no complications. IMPRESSIONS: 1. Moderate diverticulosis throughout the entire examined colon, predominantly in the sigmoid colon 2. Small internal hemorrhoids 3. Intubation to proximal transverse colon, stopping there due to probability of LLQ/RLQ pain being due to mild diverticulitis (could worsen from pressure of on IV antibiotics RECOMMENDATIONS: continue IV antibiotics RECALL: Return in 6 week(s) for Colonoscopy. Miguelito Almeida Dr eSigned: Miguelito Almeida Dr 06/20/2018 12:21 PM cc: Finesse Dunn CPT CODES: ICD9 CODES: PATIENT NAME: Eloise Flynn MR#: [id number]
[2018-06-20 12:55] VITALS: O2SAT 99
--- NOTE | 2018-06-20 17:37 | P.DS ---
Admission Date: 06/17/18 Discharge Date: 06/20/18 Disposition: ROUTINE DISCHARGE Reason for Admission: DIFFUSE ABDOMEN PAIN. - Problems (1) Epigastric pain Current Visit: Yes Status: Acute (2) GERD (gastroesophageal reflux disease) Current Visit: Yes Status: Acute Qualifiers: Esophagitis presence: with esophagitis Qualified Code(s): K21.0 - Gastro- esophageal reflux disease with esophagitis (3) Nausea & vomiting Current Visit: No Status: Acute (4) Diffuse abdominal pain Current Visit: Yes Status: Acute Brief History of Present Illness: MS. COSTA HAS BURNING CHEST PAIN RADIATING TO BACK FOR TWO DAYS. SHE CALLED DR. LUIS HER GI DOCTOR BUT HE HAS QUIT TAKING HER INSURANCE. SHE COMES TO ER. SHE HAS SOME NAUSEA AND VOMITING ABOUT 3 TIMES IN TWO DAYS. MS COSTA IS LOT BETTER. SHE IS NOT TAKING PROTONIX SHE HAS BUT NOW SHE WILL. I STOPPED KCL AND ADDED TO SPIRONOLACTONE KCL CAN IRRITANTE THE STOMACH. SHE IS STABLE TO GO HOME. Vital Signs/Physical Exam: Temp Pulse Resp BP Pulse Ox 98.8 F 64 18 150/45 H 98 06/20/18 12:34 06/20/18 12:34 06/20/18 12:34 06/20/18 12:34 06/20/18 12:00 Laboratory Data at Discharge: WBC 7.3 K/uL (4.3-10.9) D 06/18/18 04:29 Hgb 11.8 g/dL (12.0-15.0) L 06/18/18 04:29 Hct 36.1 % (36.0-45.0) 06/18/18 04:29 Plt Count 242 K/uL (152-406) 06/18/18 04:29 PT 13.2 SECONDS (9.5-12.5) H 06/17/18 14:20 INR 1.12 06/17/18 14:20 Sodium 145 mmol/L (136-145) 06/18/18 04:29 Potassium 3.6 mmol/L (3.5-5.1) 06/18/18 04:29 BUN 14 mg/dL (7-18) 06/18/18 04:29 Creatinine 0.68 mg/dL (0.55-1.3) 06/18/18 04:29 Glucose 151 mg/dL (74-106) H 06/18/18 04:29 Magnesium 1.8 mg/dL (1.8-2.4) 06/17/18 14:20 Total Bilirubin 0.4 mg/dL (0.2-1.0) 06/17/18 14:20 AST 13 U/L (15-37) L 06/17/18 14:20 ALT 21 U/L (12-78) 06/17/18 14:20 Alkaline Phosphatase 107 U/L (45-117) 06/17/18 14:20 Troponin I < 0.02 ng/mL (0.0-0.045) 06/17/18 23:49 Lipase 158 U/L (73-393) 06/17/18 14:20 Home Medications: Atenolol 1 tab PO BEDTIME 06/25/15 Nisoldipine 1 tab PO DAILY 06/25/15 Olmesartan/Hydrochlorothiazide [Benicar Hct 40-12.5 mg Tablet] 1 tab PO DAILY Pantoprazole Sodium [Protonix] 40 mg PO DAILY 06/18/18 Ciprofloxacin HCl [Cipro 500 MG Tablet] 500 mg PO BID #20 tab 06/19/18 metroNIDAZOLE [Flagyl] 500 mg PO Q8H #30 tablet 06/19/18 Pantoprazole [Protonix Tab*] 40 mg PO DAILY #90 tab 06/20/18 Spironolactone [Aldactone*] 25 mg PO DAILY #90 tab 06/20/18 New Medications: Ciprofloxacin HCl [Cipro 500 MG Tablet] 500 mg PO BID #20 tab metroNIDAZOLE [Flagyl] 500 mg PO Q8H #30 tablet Pantoprazole [Protonix Tab*] 40 mg PO DAILY #90 tab Spironolactone [Aldactone*] 25 mg PO DAILY #90 tab Followup: ElleMiguelito MD [ASSOCIATE-ACTIVE - CAN ADMIT] -
[2018-06-20 18:21] VITALS: BP 142/68; TEMP 97.6
== END 2018-06-20 18:20 | disposition home or self-care (01) ==
LOC: ER 13:46 → ERHOLD 16:29 → 2ND 20:54
PROVIDERS: ADMIT Internal Medicine; ATTEND Internal Medicine
PROC: 0DJ08ZZ Inspection of Upper Intestinal Tract, Via Natural or Artificial Opening Endoscopic (ICD-10-PCS; 2018-06-19)
PROC: 0DB98ZX Excision of Duodenum, Via Natural or Artificial Opening Endoscopic, Diagnostic (ICD-10-PCS; principal; 2018-06-19 09:45)
PROC: 0DJD8ZZ Inspection of Lower Intestinal Tract, Via Natural or Artificial Opening Endoscopic (ICD-10-PCS; 2018-06-20)
DX: K29.70 Gastritis, unspecified, without bleeding (principal); K57.90 Diverticulosis of intestine, part unspecified, without perforation or abscess without bleeding; K44.9 Diaphragmatic hernia without obstruction or gangrene; K21.0 Gastro-esophageal reflux disease with esophagitis; R11.2 Nausea with vomiting, unspecified
CPT/HCPCS: 36415; 71045; 71275; 74175; 80048; 80076; 81003; 82962; 83690; 83735; 83880; 84132; 84484; 85025; 85610; 87086; 87088; 88305; 88312; 93005; 96374; 96375; 99285; C9113; G0378; J0744; J2405; J2704; J2765; J7030; Q9967

== ENCOUNTER 2020-12-27 07:03 | Emergency (ER) | payer BC ==
[2020-12-27 08:11] LABS: Absolute Lymphocytes (CBC) 1.4 K/uL (0.7-4.9); Basophils % 0.9 % (0-1.3); Hematocrit 38.6 % (36.0-45.0); Lymphocytes % 15.8 % (15.3-44.8); MPV 8.6 fL (7.6-11.3); RBC Red Blood Cell Count 4.56 M/uL (3.86-4.86)
[2020-12-27 08:17] LABS: Albumin 3.6 g/dL (3.4-5.0); Bilirubin Direct 0.2 mg/dL (0-0.2); Bilirubin Total 0.5 mg/dL (0.2-1.0); Potassium 3.7 mmol/L (3.5-5.1); Protein, Total 7.8 g/dL (6.4-8.2)
--- NOTE | 2020-12-27 08:45 | RAD REPORT ---
EXAM DESCRIPTION: CT - FC CLINICAL HISTORY: orbital infection vs sinus COMPARISON: No comparisons TECHNIQUE: Axial 2 mm thick images of the face were obtained with sagittal and coronal reconstructio n images. All CT scans are performed using dose optimization technique as appropriate and may include automated exposure control or mA/KV adjustment according to patient size. FINDINGS: No acute facial bone fracture is seen.The mandible is intact. Preseptal edema involving the left orbit. No fluid collections identified. No soft tissue gas. The in traconal soft tissues are unremarkable.The paranasal sinuses and mastoids are clear. IMPRESSION: Preseptal edema anterior to the left orbit which may represent a cellulitis. No other ac [place] findings are identified.
--- NOTE | 2020-12-27 09:42 | EDPHYS ---
Physician Documentation [facility] Name: Eloise Flynn Age: 65 yrs Sex: Female : 1955 Arrival Date: 12/27/2020 Time: 07:09 Bed 23 Private MD: ED Physician Rayna Benitez HPI: 12/27 07:41 This 65 yrs old Black Female presents to ER via Ambulatory with complaints of Cough, sp3 Sinus Congestion, Eye Swelling, Ear Pain, Blurred Vision. 07:41 Is a 5-year-old female with a history of hypertension presents with chief complaint sp3 left eye pain, swelling, mild itching for the last 2 days. Patient is also recovering from an upper respiratory infection for which she saw her PCP and had a negative COVID-19 test was placed on azithromycin standard pack for which she is on the last day today. Patient reports mild resolution of symptoms but presents today mainly for the left eye pain. She states that it could "be a bug bite" but does not distinctly remember an insect bite. She also states that she has had sinus infections in the past and feels like the pain may be sinus related. She denies any supratentorial headache, neck pain, fever, shortness of breath, chest pain, abdominal pain, nausea, vomiting, diarrhea, rash anywhere else, history of shingles, neuro symptoms, or any other symptoms on ROS at this time. Remainder of ROS is negative.. Historical: - Allergies: 07:20 PENICILLINS; aa5 - Home Meds: 07:20 Singulair Oral [Active]; metformin 1,000 mg oral tab 2 times per day [Active]; Bromfed aa5 DM oral [Active]; Xyzal oral [Active]; Azithromycin Oral [Active]; Atenolol Oral [Active]; spironolactone 25 mg Oral tab once daily [Active]; olmesartan-hydrochlorothiazide 40-12.5 mg oral tab once daily [Active]; nisoldipine 34 mg oral Tb24 once daily [Active]; - PMHx: 07:20 Hypertension; Diabetes mellitus; Asthma; aa5 - Immunization history:: Client reports receiving the 2nd dose of the Covid vaccine. - Social history:: Smoking status: Patient denies any tobacco usage or history of. ROS: 07:43 Constitutional: Negative for fever, chills, and weight loss, Neck: Negative for injury, sp3 pain, and swelling, Cardiovascular: Negative for chest pain, palpitations, and edema, Abdomen/GI: Negative for abdominal pain, nausea, vomiting, diarrhea, and constipation, Back: Negative for injury and pain, Skin: Negative for injury, rash, and discoloration, Neuro: Negative for headache, weakness, numbness, tingling, and seizure, Psych: Negative for depression, anxiety, suicide ideation, homicidal ideation, and hallucinations, Allergy/Immunology: Negative for hives, rash, and allergies. 07:43 All other systems are negative. Exam: 07:44 Constitutional: This is a well developed, well nourished patient who is awake, alert, sp3 and in no acute distress. Head/Face: Normocephalic, atraumatic. Neck: Trachea midline, no thyromegaly or masses palpated, and no cervical lymphadenopathy. Supple, full range of motion without nuchal rigidity, or vertebral point tenderness. No Meningismus. Chest/axilla: Normal chest wall appearance and motion. Nontender with no deformity. No lesions are appreciated. Cardiovascular: Regular rate and rhythm with a normal S1 and S2. No gallops, murmurs, or rubs. Normal PMI, no JVD. No pulse deficits. Respiratory: Lungs have equal breath sounds bilaterally, clear to auscultation and percussion. No rales, rhonchi or wheezes noted. No increased work of breathing, no retractions or nasal flaring. Abdomen/GI: Soft, non-tender, with normal bowel sounds. No distension or tympany. No guarding or rebound. No evidence of tenderness throughout. Back: No spinal tenderness. No costovertebral tenderness. Full range of motion. Neuro: Awake and alert, GCS 15, oriented to person, place, time, and situation. Cranial nerves II-XII grossly intact. Motor strength 5/5 in all extremities. Sensory grossly intact. Cerebellar exam normal. Normal gait. Psych: Awake, alert, with orientation to person, place and time. Behavior, mood, and affect are within normal limits. 07:44 Eyes: Patient has left periorbital swelling mainly at the eyebrow level with a small 1 cm x 1 cm area of crusting in the larger area of swelling with approximately 50% forcing of eye closure. Pupillary exam, visual acuity, and extraocular muscles are all intact.. 07:44 ENT: Normal ENT exam with exception of slightly erythematous left tympanic membrane. There are no signs of shingles or any other cranial nerve distribution rash.. Vital Signs: 07:20 BP 147 / 77; Pulse 80; Resp 20 S; Temp 98.5(O); Pulse Ox 100% on R/A; Weight 104.33 kg aa5 (R); Height 5 ft. 1 in. (154.94 cm) (R); 08:14 BP 161 / 89; Pulse 69; Resp 17; Pulse Ox 100% on R/A; ap3 09:29 BP 164 / 95; Pulse 64; Resp 17; Pulse Ox 100% on R/A; ap3 07:20 Body Mass Index 43.46 (104.33 kg, 154.94 cm) aa5 MDM: 07:24 Patient medically screened. sp3 07:45 Data reviewed: vital signs, nurses notes. ED course: Patient likely has a periorbital sp3 cellulitis with no orbital involvement. Will obtain a CT scan to fully assess. I am not suspicious of pneumonia regarding her URI symptoms as her lungs are completely clear and she is having no active coughing. Patient will likely need to be placed on a secondary antibiotic given her facial skin symptoms. Clinically she does not have shingles.. 09:39 ED course: Laboratory values are normal and CT demonstrates preseptal cellulitis sp3 without any other findings. Will discharge patient home on Bactrim and clindamycin at this time.. 12/27 07:40 Order name: Basic Metabolic Panel sp3 12/27 07:40 Order name: CBC with Diff sp3 12/27 07:40 Order name: Hepatic Function sp3 12/27 07:41 Order name: Basic Metabolic Panel; Complete Time: 09:38 EDMS 12/27 07:41 Order name: CBC with Automated Diff; Complete Time: 09:38 EDMS 12/27 07:41 Order name: Liver (Hepatic) Function; Complete Time: 09:38 EDMS 12/27 07:40 Order name: IV Saline Lock; Complete Time: 07:53 sp3 12/27 07:40 Order name: Labs collected and sent; Complete Time: 07:53 sp3 12/27 07:40 Order name: CT Maxillofacial W/cont; Complete Time: 09:38 sp3 Administered Medications: No medications were administered Disposition Summary: 12/27/20 09:41 Discharge Ordered Location: Home sp3 Condition: Stable sp3 Diagnosis - Periorbital cellulitis sp3 Followup: sp3 - With: Private Physician - When: As needed - Reason: Discharge Instructions: - Discharge Summary Sheet sp3 - Preseptal Cellulitis, Adult sp3 Forms: - Medication Reconciliation Form sp3 - Work release form ap3 - Thank You Letter sp3 - Antibiotic Education sp3 - Prescription Opioid Use sp3 Prescriptions: - Clindamycin HCl 300 mg Oral Capsule - take 1 capsule by ORAL route every 6 hours for 10 days; 40 capsule; Refills: 0, sp3 Product Selection Permitted - Bactrim DS 800-160 mg Oral Tablet - take 1 tablet by ORAL route every 12 hours for 10 days; 20 tablet; Refills: 0, sp3 Product Selection Permitted Signatures: Dispatcher [employer] Aylin Lambert RN RN aa5 Amelia Valdez RN RN ap3 Rayna Benitez MD MD sp3
--- NOTE | 2020-12-27 09:42 | ER ---
Nurse's Notes [facility] Name: Eloise Flynn Age: 65 yrs Sex: Female : 1955 Arrival Date: 12/27/2020 Time: 07:09 Bed 23 Private MD: Diagnosis: Periorbital cellulitis Presentation: 12/27 07:20 Chief complaint: Patient states: "I started with a cough last week and I went to the aa5 doctor and he put me on azithromycin, Bromfed/codeine, and xyzal". Pt reports she is coughing up phlegm and has hx of bronchitis. Pt also reports negative COVID-19 test last week. Pt c/o sinus congestion, left ear pain, and left upper eyelid swelling. 07:20 Acuity: MAIN 3 aa5 07:20 Coronavirus screen: cough unrelated to allergies. Ebola Screen: No symptoms or risks aa5 identified at this time. Onset of symptoms was December 2020. 07:20 Method Of Arrival: Ambulatory aa5 07:29 Risk Assessment: Do you want to hurt yourself or someone else?. ap3 08:27 Initial Sepsis Screen: Does the patient meet any 2 criteria? No. Patient's initial ap3 sepsis screen is negative. Does the patient have a suspected source of infection? No. Patient's initial sepsis screen is negative. Historical: - Allergies: 07:20 PENICILLINS; aa5 - Home Meds: 07:20 Singulair Oral [Active]; metformin 1,000 mg oral tab 2 times per day [Active]; Bromfed aa5 DM oral [Active]; Xyzal oral [Active]; Azithromycin Oral [Active]; Atenolol Oral [Active]; spironolactone 25 mg Oral tab once daily [Active]; olmesartan-hydrochlorothiazide 40-12.5 mg oral tab once daily [Active]; nisoldipine 34 mg oral Tb24 once daily [Active]; - PMHx: 07:20 Hypertension; Diabetes mellitus; Asthma; aa5 - Immunization history:: Client reports receiving the 2nd dose of the Covid vaccine. - Social history:: Smoking status: Patient denies any tobacco usage or history of. Screenin:29 Abuse screen: Denies threats or abuse. Nutritional screening: No deficits noted. ap3 Tuberculosis screening: No symptoms or risk factors identified. Fall Risk None identified. Assessment: 07:26 General: Appears comfortable, Behavior is calm, cooperative, Reports feeling ill for > ap3 3 days. Pain: Complains of pain in left ear, left eye and nose Quality of pain is described as pressure, Also complains of cough and congestion. Neuro: Level of Consciousness is awake, alert, obeys commands, Oriented to person, place, time, situation, Moves all extremities. Gait is steady, Speech is normal. Cardiovascular: Patient's skin is warm and dry. Respiratory: Reports cough that is productive, Airway is patent Respiratory effort is even, unlabored, Respiratory pattern is regular, symmetrical. GI: No signs and/or symptoms were reported involving the gastrointestinal system. : No signs and/or symptoms were reported regarding the genitourinary system. EENT: Eyes left eye swollen. Reports nasal congestion nasal discharge. Derm:. Musculoskeletal: Swelling present in left eye. 08:14 Reassessment: Patient and/or family updated on plan of care and expected duration. Pain ap3 level reassessed. Patient is alert, oriented x 3, equal unlabored respirations, skin warm/dry/pink. visitor at the bedside. Vital Signs: 07:20 BP 147 / 77; Pulse 80; Resp 20 S; Temp 98.5(O); Pulse Ox 100% on R/A; Weight 104.33 kg aa5 (R); Height 5 ft. 1 in. (154.94 cm) (R); 08:14 BP 161 / 89; Pulse 69; Resp 17; Pulse Ox 100% on R/A; ap3 09:29 BP 164 / 95; Pulse 64; Resp 17; Pulse Ox 100% on R/A; ap3 07:20 Body Mass Index 43.46 (104.33 kg, 154.94 cm) aa5 ED Course: 07:09 Patient arrived in ED. bp1 07:20 Rayna Benitez MD is Attending Physician. sp3 07:20 Arm band placed on Patient placed in an exam room, on a stretcher. aa5 07:25 Amelia Valdez, SHELLI is Primary Nurse. ap3 07:28 Triage completed. aa5 07:28 Patient has correct armband on for positive identification. Bed in low position. Call ap3 light in reach. Side rails up X2. Pulse ox on. NIBP on. Door closed. Noise minimized. 07:48 Inserted saline lock: 20 gauge in right antecubital area, using aseptic technique. ap3 Blood collected. 07:53 Warm blanket given. ap3 08:[address] via wheelchair. ap3 08:37 CT Maxillofacial W/cont In Process Unspecified. EDMS 08:41 Patient moved back from [place]. ap3 09:08 Basic Metabolic Panel Sent. mh5 09:08 CBC with Diff Sent. mh5 09:08 Hepatic Function Sent. mh5 10:25 No provider procedures requiring assistance completed. IV discontinued, intact, ap3 bleeding controlled, No redness/swelling at site. Pressure dressing applied. Administered Medications: No medications were administered Outcome: :41 Discharge ordered by . sp3 10:25 Discharged to home ambulatory. ap3 10:25 Condition: good 10:25 Discharge instructions given to patient, family, Instructed on discharge instructions, follow up and referral plans. medication usage, Demonstrated understanding of instructions, follow-up care, medications, Prescriptions given X 2. 10:25 Patient left the ED. ap3 Signatures: Dispatcher [employer] EDNE Aylin Laguna, RN RN iris5 Thania Pop Amanda, RN RN ap3 Nannette Valdes Setul, MD MD sp3
[2020-12-27 10:30] VITALS: TEMP 98.5; O2SAT 100
[2020-12-27 10:32] VITALS: BP 164/95
== END 2020-12-27 10:25 | disposition home or self-care (01) ==
LOC: ER 07:03
DX: L03.213 Periorbital cellulitis (principal); I10 Essential (primary) hypertension; E11.9 Type 2 diabetes mellitus without complications; Z88.0 Allergy status to penicillin
CPT/HCPCS: 85025; 80048; 36415; 80076; 70487; 99284; Q9967

== ENCOUNTER 2023-10-23 08:41 | Emergency (ER) | payer BC, OTHER ==
[2023-10-23] MEDS ORDERED: NA CHLORIDE 0.9% 1,000 ML ONE (09:22)
[2023-10-23 09:25] LABS: Absolute Basophils 0.1 K/uL (0-0.5); Absolute Eosinophils 0.1 K/uL (0-0.5); Absolute Lymphocytes (CBC) 1.6 K/uL (0.7-4.9); Absolute Monocytes 0.5 K/uL (0.1-1.3); Absolute Neutrophil 5.4 K/uL (1.8-8.0); Basophils % 1.2 % (0-1.3); Eosinophils % 1.8 % (0-4.4); Hematocrit 35.9 % (36.0-45.0); Hemoglobin 11.9 g/dL (12.0-15.0); Lymphocytes % 21.3 % (15.3-44.8); MCH 27.9 pg (27.0-35.0); MCHC 33.1 g/dL (32.0-36.0); MCV 84.3 fL (80-100); MPV 8.6 fL (7.6-11.3); Monocytes % 5.9 % (3.3-12.3); Neutrophils % 69.8 % (41.7-73.7); Platelets 295 thou/uL (152-406); RBC Red Blood Cell Count 4.26 M/uL (3.86-4.86); Red Cell Distribution Width 14.5 % (12.1-15.2)
--- NOTE | 2023-10-23 09:41 | RAD REPORT ---
EXAM DESCRIPTION: CTAbdomen Pelvis W Contrast - 10/23/2023 9:25 am CLINICAL HISTORY: LLQ pain;Abd pain COMPARISON: Abdomen Pelvis W Contrast dated 06/25/2015 TECHNIQUE: CT of the abdomen and pelvis was performed with IV contrast. All CT scans are performed using dose optimization technique as appropriate and may include automated exposure control or mA/KV adjustment according to patient size. FINDINGS: Lower chest: No acute abnormality. Liver: No acute abnormality or suspicious lesions. Biliary: Cholecystectomy . Stomach: No significant focal abnormality. Duodenum: No significant focal abnormality. Pancreas: No significant abnormality. Spleen: No significant abnormality. Adrenal: No suspicious lesions. Kidney/ureter: No hydronephrosis. No renal calculi. Retroperitoneum: No retroperitoneal adenopathy. Vascular: No aneurysm. Bowel: Appendectomy.. Diverticulosis. Peritoneum: No ascites or free air. Bladder: Grossly unremarkable. Reproductive: Hysterectomy. Bones: No acute fracture. Grade 1 anterolisthesis of L4 on L5. Multilevel degenerative changes are pr esent in the spine. Other: n/a IMPRESSION: No acute intra-abdominal or pelvic finding. Appendectomy. Diverticulosis without diverti culitis.
[2023-10-23 09:44] LABS: ALT/SGPT 17 U/L (13-56); AST/SGOT < 10 U/L (15-37); Albumin 3.3 g/dL (3.4-5.0); Albumin/Globulin Ratio 0.9 (1.1-1.8); Alkaline Phosphatase 83 U/L (45-117); Anion Gap 10.1 mEq/L (5.0-15.0); BUN Blood Urea Nitrogen 38 mg/dL (7-18); Bicarbonate 22 mEq/L (21-32); Bilirubin Total 0.3 mg/dL (0.2-1.0); Globulin 3.8 g/dL (2.3-3.5); Glomerular Filtration Rate 37 ml/min (=/>90); Glucose Level 238 mg/dL (74-106); Lipase 57 U/L (13-75); Potassium 4.1 mEq/L (3.5-5.1); Protein, Total 7.1 g/dL (6.4-8.2); Sodium Level 136 mEq/L (136-145)
[2023-10-23 10:38] LABS: Specific Gravity > 1.030 (1.005-1.030); Sqamous Epithelial <5 /HPF (None Seen); Urine Bacteria <20 /HPF (<20); Urine Bilirubin NEGATIVE (Negative); Urine Blood Negative (Negative); Urine Clarity Clear (Clear); Urine Color Colorless (Yellow); Urine Culture Reflex Order NOT NEEDED; Urine Glucose NEGATIVE (Negative); Urine Ketones NEGATIVE (Negative); Urine Microscopic Reflex YN ORDER UMIC; Urine Mucus Slight /HPF (None Seen); Urine Nitrite NEGATIVE (Negative); Urine Protein NEGATIVE (Negative); Urine RBC <5 /HPF (None Seen); Urine Urobilinogen Normal (Normal); Urine WBC <5 /HPF (<5); Urine pH 5.5 (5.0-7.0)
[2023-10-23] MEDS ORDERED: ONDANSETRON 4 MG/2 ML VIAL ONE (11:04)
[2023-10-23] MEDS ORDERED: MORPHINE 4 MG/ML SYR ONE (11:04)
--- NOTE | 2023-10-23 11:11 | ER ---
Nurse's Notes [facility] Name: Eloise Flynn Age: 68 yrs Sex: Female : 1955 Arrival Date: 10/23/2023 Time: 08:41 Bed 6 Private MD: Diagnosis: Abdominal pain Presentation: 10/22 09:01 Chief complaint: Patient states: she started having abdominal pain prior to Sunday, but ap3 Sunday she reports the pain got "really bad". Patient reports her pain is in the lower left abdomen and radiates to the lower right. patient currently rates her pain as a 8/10 on the pain scale. patient reports nausea and intermittent constipation and diarrhea. Coronavirus screen: At this time, the client does not indicate any symptoms associated with coronavirus-19. Ebola Screen: No symptoms or risks identified at this time. Initial Sepsis Screen: Does the patient meet any 2 criteria? No. Patient's initial sepsis screen is negative. Does the patient have a suspected source of infection? No. Patient's initial sepsis screen is negative. Risk Assessment: Do you want to hurt yourself or someone else? Patient reports no desire to harm self or others. Onset of symptoms is unknown. 09:01 Method Of Arrival: Wheelchair ap3 09:01 Acuity: MAIN 3 ap3 Triage Assessment: 09:01 General: Appears uncomfortable, Behavior is cooperative, crying. Pain: Complains of ap3 pain in left lower quadrant Pain radiates to suprapubic area and right lower quadrant Pain currently is 8 out of 10 on a pain scale. Neuro: Level of Consciousness is awake, alert, obeys commands, Oriented to person, place, time, situation, Appropriate for age Speech is normal. Cardiovascular: Patient's skin is warm and dry. Respiratory: Airway is patent Respiratory effort is even, unlabored, Respiratory pattern is regular, symmetrical. GI: Reports lower abdominal pain, constipation, diarrhea, nausea. Historical: - Allergies: 08:55 PENICILLINS; mb9 - PMHx: 08:55 Asthma; diabetes mellitus; Hypertension; mb9 - Immunization history:: Client reports receiving the 2nd dose of the Covid vaccine. - Infectious Disease History:: Denies. - Social history:: Smoking status: unknown. Screenin:55 [facility] ED Fall Risk Assessment (Adult) History of falling in the last 3 months, mb9 including since admission No falls in past 3 months (0 pts) Confusion or Disorientation No (0 pts) Intoxicated or Sedated No (0 pts) Impaired Gait No (0 pts) Mobility Assist Device Used No (0 pt) Altered Elimination No (0 pt) Score/Fall Risk Level 0 - 2 = Low Risk Oriented to surroundings, Maintained a safe environment, Educated pt \\T\\ family on fall prevention, incl call for assistance when getting out of bed. Abuse screen: Denies threats or abuse. Nutritional screening: No deficits noted. Tuberculosis screening: No symptoms or risk factors identified. Assessment: 09:20 General: Appears uncomfortable, Behavior is cooperative. Pain: Complains of pain in mb9 abdomen Pain radiates to left lower quadrant Pain currently is 8 out of 10 on a pain scale. Quality of pain is described as sharp, stabbing, Pain began gradually, Is continuous. Pain: Aggravated by increased activity, repositioning. Neuro: Balbuena Agitation-Sedation Scale (RASS): 0 - Alert and Calm Level of Consciousness is awake, alert, obeys commands, Oriented to person, place, time, situation, Appropriate for age. Cardiovascular: Heart tones S1 S2 present Patient's skin is warm and dry. Respiratory: Airway is patent Respiratory effort is even, unlabored, Respiratory pattern is regular, symmetrical, Breath sounds are clear bilaterally. GI: Abdomen is round non-distended, Bowel sounds present X 4 quads. Abd is soft Abdomen is tender to palpation in left lower quadrant. : No signs and/or symptoms were reported regarding the genitourinary system. EENT: No signs and/or symptoms were reported regarding the EENT system. Derm: Skin is pink, warm \\T\\ dry. Musculoskeletal: Range of motion: intact in all extremities. 10:25 Reassessment: No changes from previously documented assessment. Patient and/or family mb9 updated on plan of care and expected duration. Pain level reassessed. Patient is alert, oriented x 3, equal unlabored respirations, skin warm/dry/pink. 11:11 Reassessment: Discharge pending wait time for medication administration. mb9 11:30 Reassessment: Patient and/or family updated on plan of care and expected duration. Pain mb9 level reassessed. Patient is alert, oriented x 3, equal unlabored respirations, skin warm/dry/pink. Patient states feeling better. Patient states symptoms have improved. Vital Signs: 09:01 BP 134 / 87; Pulse 80; Resp 17; Temp 98.7; Pulse Ox 100% ; Weight 122.47 kg; Height 5 ap3 ft. 1 in. ; Pain 8/10; 10:25 BP 163 / 70; Pulse 63; Resp 18; Pulse Ox 100% on R/A; mb9 11:30 BP 130 / 74; Pulse 74; Resp 18; Pulse Ox 100% on R/A; mb9 09:01 Body Mass Index 51.02 (122.47 kg, 154.94 cm) ap3 09:01 Pain Scale: Adult ap3 ED Course: 08:48 Patient arrived in ED. mg5 08:49 Rayna Benitez MD is Attending Physician. sp3 08:51 Mary Saleem, SHELLI is Primary Nurse. mb9 08:55 Arm band placed on. mb9 08:56 Placed in gown. Bed in low position. Call light in reach. Side rails up X 1. Provided mb9 Education on: press call light if needing anything. Client placed on continuous cardiac and pulse oximetry monitoring. NIBP monitoring applied. 09:04 Triage completed. ap3 09:21 No provider procedures requiring assistance completed. Initial lab(s) drawn, by , randi sent to lab. Inserted saline lock: 22 gauge in right antecubital area, using aseptic technique. Blood collected. Flushed with 10 mL NS. 09:27 CT Abd/Pelvis - IV Contrast Only In Process Unspecified. EDMS 10:52 Patient requests pain medication. mb9 11:30 IV discontinued, intact, bleeding controlled, No redness/swelling at site. Pressure mb9 dressing applied. Administered Medications: 09:33 Drug: NS 0.9% IV 1000 ml IV at 1 bolus Per protocol; 1000 mL bolus Route: IV; Rate: 1 mb9 bolus; Site: right antecubital; 11:18 Follow up: Response: No adverse reaction; IV Status: Completed infusion mb9 11:04 Drug: Ondansetron IVP 4 mg IVP once; over 2 minutes Route: IVP; Site: right antecubital;mb9 11:08 Drug: morphine IVP or IV 4 mg IVP once over 4 mins Route: IVP; Infused Over: 4 mins; mb9 Site: right antecubital; Medication: 08:56 VIS not applicable for this client. mb9 Outcome: 11:10 Discharge ordered by . sue 11:31 Discharged to home via wheelchair, with family, randi 11: Condition: stable 11:31 Discharge instructions given to patient, Instructed on discharge instructions, follow up and referral plans. Demonstrated understanding of instructions, follow-up care, :31 Patient left the ED. mb9 Signatures: Dispatcher [employer] EDAmelia Burnette RN RN [id number] Rayna Benitez MD MD sp3 Mary Saleem RN RN mb9 Lynne Arambula mg5
--- NOTE | 2023-10-23 11:11 | EDPHYS ---
Physician Documentation [facility] Name: Eloise Flynn Age: 68 yrs Sex: Female : 1955 Arrival Date: 10/23/2023 Time: 08:41 Bed 6 Private MD: ED Physician Rayna Benitez HPI: 10/22 09:10 This 68 yrs old Black Female presents to ER via Wheelchair with complaints of Abdominal sp3 Pain. 09:10 68-year-old female with history of diabetes and hypertension status post sp3 cholecystectomy, appendectomy, hysterectomy presents with left lower quadrant abdominal pain. Patient also has a history of prior diverticulitis. She denies diarrhea but does endorse vomiting. She denies fever, URI symptoms, neck pain, chest pain, shortness of breath, back pain, extremity pain, numbness or tingling, history of vascular disease, or any other signs or symptoms on ROS at this time.. Historical: - Allergies: 08:55 PENICILLINS; mb9 - PMHx: 08:55 Asthma; diabetes mellitus; Hypertension; mb9 - Immunization history:: Client reports receiving the 2nd dose of the Covid vaccine. - Infectious Disease History:: Denies. - Social history:: Smoking status: unknown. ROS: 09:11 Constitutional: Negative for fever, chills, and weight loss, Eyes: Negative for injury, sp3 pain, redness, and discharge, ENT: Negative for injury, pain, and discharge, Neck: Negative for injury, pain, and swelling, Cardiovascular: Negative for chest pain, palpitations, and edema, Respiratory: Negative for shortness of breath, cough, wheezing, and pleuritic chest pain, Back: Negative for injury and pain, : Negative for injury, bleeding, discharge, and swelling, MS/Extremity: Negative for injury and deformity, Skin: Negative for injury, rash, and discoloration, Neuro: Negative for headache, weakness, numbness, tingling, and seizure, Psych: Negative for depression, anxiety, suicide ideation, homicidal ideation, and hallucinations, Allergy/Immunology: Negative for hives, rash, and allergies, Endocrine: Negative for neck swelling, polydipsia, polyuria, polyphagia, and marked weight changes, Hematologic/Lymphatic: Negative for swollen nodes, abnormal bleeding, and unusual bruising, 09:11 All other systems are negative, Exam: 09:11 Constitutional: This is a well developed, well nourished patient who is awake, alert, sp3 and in no acute distress. Head/Face: Normocephalic, atraumatic. Eyes: Pupils equal round and reactive to light, extra-ocular motions intact. Lids and lashes normal. Conjunctiva and sclera are non-icteric and not injected. Cornea within normal limits. Periorbital areas with no swelling, redness, or edema. Neck: Trachea midline, no thyromegaly or masses palpated, and no cervical lymphadenopathy. Supple, full range of motion without nuchal rigidity, or vertebral point tenderness. No Meningismus. Chest/axilla: Normal chest wall appearance and motion. Nontender with no deformity. No lesions are appreciated. Cardiovascular: Regular rate and rhythm with a normal S1 and S2. No gallops, murmurs, or rubs. Normal PMI, no JVD. No pulse deficits. Respiratory: Lungs have equal breath sounds bilaterally, clear to auscultation and percussion. No rales, rhonchi or wheezes noted. No increased work of breathing, no retractions or nasal flaring. Back: No spinal tenderness. No costovertebral tenderness. Full range of motion. Skin: Warm, dry with normal turgor. Normal color with no rashes, no lesions, and no evidence of cellulitis. MS/ Extremity: Pulses equal, no cyanosis. Neurovascular intact. Full, normal range of motion. Neuro: Awake and alert, GCS 15, oriented to person, place, time, and situation. Cranial nerves II-XII grossly intact. Motor strength 5/5 in all extremities. Sensory grossly intact. Cerebellar exam normal. Normal gait. Psych: Awake, alert, with orientation to person, place and time. Behavior, mood, and affect are within normal limits. 09:11 Abdomen/GI: Left lower quadrant abdominal pain without peritoneal signs, rebound or guarding., Vital Signs: 09:01 BP 134 / 87; Pulse 80; Resp 17; Temp 98.7; Pulse Ox 100% ; Weight 122.47 kg; Height 5 ap3 ft. 1 in. ; Pain 8/10; 10:25 BP 163 / 70; Pulse 63; Resp 18; Pulse Ox 100% on R/A; mb9 11:30 BP 130 / 74; Pulse 74; Resp 18; Pulse Ox 100% on R/A; mb9 09:01 Body Mass Index 51.02 (122.47 kg, 154.94 cm) ap3 09:01 Pain Scale: Adult ap3 MDM: 08:56 Patient medically screened. sp3 09:12 Data reviewed: vital signs, nurses notes, lab test result(s), radiologic studies. ED sp3 course: 68-year-old female with PMH above and past surgical history above now with left lower quadrant abdominal pain. Differential diagnosis includes diverticulitis, colitis, adhesions, SBO, partial SBO, ileus, UTI/pyelonephritis spectrum, and to a lesser degree vascular pathology. Clinically I do not believe patient has sepsis or shock. Workup will include laboratory values, UA, CT scan of the abdomen pelvis. Treatment will include IV fluids and as needed pain medication as needed. Patient currently declines pain medication. Disposition pending workup and patient course.. 11:09 ED course: CT scan negative and laboratory values without significant findings. sp3 Creatinine at 1.5. I have told her to hold her metformin till she sees Dr. Dunn. Patient did finally asked for pain medicine. We will give 4 mg of morphine and an additional 4 mg of ondansetron IV. Discharged home after that as patient has no critical illness. Vital signs are within normal limits. Patient in no acute distress currently.. 10/22 09:06 Order name: CBC with Diff; Complete Time: 09:45 sp3 10/22 09:06 Order name: CMP; Complete Time: 09:45 sp3 10/22 09:06 Order name: Lipase; Complete Time: 09:45 sp3 10/22 09:06 Order name: Urinalysis w/ reflexes; Complete Time: 10:53 sp3 10/22 09:06 Order name: Lactate w/ 2H reflex if indic.; Complete Time: 10:36 sp3 10/22 09:06 Order name: CT Abd/Pelvis - IV Contrast Only; Complete Time: 09:45 sp3 10/22 09:06 Order name: IV Saline Lock; Complete Time: 09:11 sp3 10/22 09:06 Order name: Labs collected and sent; Complete Time: 09:11 sp3 Administered Medications: 09:33 Drug: NS 0.9% IV 1000 ml IV at 1 bolus Per protocol; 1000 mL bolus Route: IV; Rate: 1 mb9 bolus; Site: right antecubital; 11:18 Follow up: Response: No adverse reaction; IV Status: Completed infusion mb9 11:04 Drug: Ondansetron IVP 4 mg IVP once; over 2 minutes Route: IVP; Site: right antecubital;mb9 11:08 Drug: morphine IVP or IV 4 mg IVP once over 4 mins Route: IVP; Infused Over: 4 mins; mb9 Site: right antecubital; Disposition Summary: 10/23/23 11:10 Discharge Ordered Notes: Location: Home sp3 Condition: Stable sp3 Diagnosis - Abdominal pain sp3 Followup: sp3 - With: Private Physician - When: Upon discharge from the Emergency Department - Reason: Continuance of care Discharge Instructions: - Discharge Summary Sheet sp3 - Abdominal Pain, Adult sp3 Forms: - Medication Reconciliation Form sp3 - Antibiotic Education sp3 - Prescription Opioid Use sp3 - Patient Portal Instructions sp3 - Leadership Thank You Letter sp3 Signatures: Dispatcher [employer] Amelia Mckenzie RN RN ap3 Rayna Benitez MD MD sp3 Mary Saleem RN RN mb9
[2023-10-23 11:48] VITALS: TEMP 98.7; O2SAT 100
[2023-10-23 11:51] VITALS: BP 130/74
== END 2023-10-23 11:31 | disposition home or self-care (01) ==
LOC: ER 08:41
DX: R10.32 Left lower quadrant pain (principal); R11.10 Vomiting, unspecified; E11.9 Type 2 diabetes mellitus without complications; I10 Essential (primary) hypertension
CPT/HCPCS: 85025; 81001; 36415; 83605; 83690; 80053; 74177; Q9967; J2405; J7030

== ENCOUNTER 2024-04-03 09:38 | Emergency (ER) | payer OTHER ==
[2024-04-03 10:19] LABS: Absolute Basophils 0.1 K/uL (0-0.5); Absolute Eosinophils 0.2 K/uL (0-0.5); Absolute Monocytes 0.5 K/uL (0.1-1.3); Absolute Neutrophil 6.6 K/uL (1.8-8.0); Basophils % 1.2 % (0-1.3); Eosinophils % 1.7 % (0-4.4); Hematocrit 36.6 % (36.0-45.0); Lymphocytes % 20.9 % (15.3-44.8); MCH 27.7 pg (27.0-35.0); MCHC 32.8 g/dL (32.0-36.0); MCV 84.6 fL (80-100); Monocytes % 5.8 % (3.3-12.3); Neutrophils % 70.4 % (41.7-73.7); Platelets 258 thou/uL (152-406); RBC Red Blood Cell Count 4.32 M/uL (3.86-4.86); Red Cell Distribution Width 14.1 % (12.1-15.2)
--- NOTE | 2024-04-03 10:24 | RAD REPORT ---
Procedure: Chest Single View HISTORY: Pain COMPARISON: 2019 FINDINGS: The lungs appear clear of acute infiltrate. No significant pleural effusion noted. The heart is mildly to moderately enlarged.. IMPRESSION: No acute abnormality is displayed.
[2024-04-03] MEDS ORDERED: ONDANSETRON 4 MG/2 ML VIAL ONE (10:25)
[2024-04-03] MEDS ORDERED: MORPHINE 4 MG/ML SYR ONE (10:25)
[2024-04-03 10:31] LABS: D-Dimer 0.558 FEUug/mL (0-0.500); PT Prothrombin Time 12.8 SECONDS (9.4-12.5); Protime INR 1.22
[2024-04-03 10:38] LABS: Anion Gap 7.3 mEq/L (5.0-15.0); Magnesium 1.9 mg/dL (1.6-2.4); Potassium 4.3 mEq/L (3.5-5.1); Troponin High Sensitivity 7.5 pg/mL (<58.9)
--- NOTE | 2024-04-03 11:50 | RAD REPORT ---
EXAM:Extremity Venous Uni Ltd HISTORY: Right leg pain TECHNIQUE: Sonographic evaluation right lower extremity performed.Grayscale, color and spectral julio sis performed on all vessels COMPARISON: 2014. FINDINGS: Right common femoral, superficial femoral, greater saphenous, popliteal and posterior tibial veins ar e compressible and demonstrate augmentation. Doppler demonstrates good flow. 2 cm Muñoz's cyst IMPRESSION: No evidence of deep venous thrombosis involving the right lower extremity. 2 cm Muñoz's cyst
--- NOTE | 2024-04-03 12:25 | EDPHYS ---
Physician Documentation [facility] Name: Eloise Flynn Age: 68 yrs Sex: Female : 1955 Arrival Date: 04/03/2024 Time: 09:38 Bed 19 Private MD: ED Physician Stiven Gutierrez HPI: 04/03 09:57 This 68 yrs old Black Female presents to ER via Unassigned with complaints of Leg Pain. bo1 09:57 The patient presents with pain, that is acute. The complaints affect the lateral aspect bo1 of right knee and lateral aspect of right calf. Context: the patient is able to ambulate, "Hopping", No trauma or fall. Onset: The symptoms/episode began/occurred acutely, 1 week(s) ago. Modifying factors: the symptoms are aggravated by movement, Sxs better if on the left side. Pt known to be a diabetic. Historical: - Allergies: 09:59 PENICILLINS; ap3 - PMHx: 09:59 Asthma; diabetes mellitus; Hypertension; ap3 - Immunization history:: Client reports receiving the 2nd dose of the Covid vaccine, Flu vaccine is not up to date. - Infectious Disease History:: Denies. - Social history:: Smoking status: Patient denies any tobacco usage or history of. ROS: 10:03 Constitutional: Negative for fever, chills, and weight loss bo1 10:03 Cardiovascular: Negative for chest pain, palpitations, 10:03 Respiratory: Negative for cough, shortness of breath, 10:03 Abdomen/GI: Negative for abdominal pain, nausea and vomiting, 10:03 MS/extremity: Positive for pain, of the right leg - posterior calf to the knee, 10:03 Skin: Negative for rash, 10:03 All other systems are negative, Exam: 12:18 Constitutional: This is a well developed, well nourished patient who is awake, alert, bo1 and in acute distress. 12:18 Constitutional: The patient appears alert, awake, obese, in obvious pain, uncomfortable, 12:18 Neck: External neck: is normal, no acute changes, 12:18 Chest/axilla: Inspection: normal, no acute changes, 12:18 Cardiovascular: Rate: bradycardic, Rhythm: regular, Pulses: no pulse deficits are appreciated, 12:18 Respiratory: the patient does not display signs of respiratory distress, Respirations: normal, no acute changes, Breath sounds: are clear throughout, 12:18 Abdomen/GI: Inspection: obese Palpation: abdomen is soft and non-tender, voluntary guarding, is not appreciated, involuntary guarding, is not appreciated, 12:18 Musculoskeletal/extremity: Extremities: grossly normal except: pain, Right calf w/o palpable cords or tenseness to the compartment, 12:18 Skin: Appearance: Color: normal in color, Temperature: normal temperature, swelling, is not appreciated, 12:18 Neuro: Distal NV intact, Vital Signs: 09:56 BP 144 / 71; Pulse 72; Resp 17; Temp 98.2; Pulse Ox 100% on R/A; Weight 124.28 kg; bp Height 5 ft. 0 in. ; Pain 10/10; 10:46 BP 147 / 73; Pulse 58; Resp 15; Pulse Ox 99% ; bp 13:06 BP 144 / 71; Pulse 61; Resp 16; Pulse Ox 99% ; bp 09:56 Body Mass Index 53.51 (124.28 kg, 152.4 cm) bp 09:56 Pain Scale: Adult bp MDM: 09:53 Medical Screening Exam initiated bo1 12:21 Differential diagnosis: DVT vs diabetic neuropathy. Data reviewed: vital signs, lab bo1 test result(s), radiologic studies, doppler, ultrasound. Response to treatment: the patient's symptoms have markedly improved after treatment. ED course: Discussed with the pt, she was taken off gabapentin about 3 years ago. Pt will revisit that decision or consider trial of Lyrica. Will see PCP ADAM for pain control. Family present agree.. 04/03 10:00 Order name: Basic Metabolic Panel; Complete Time: 10:48 04/03 10:00 Order name: CBC with Diff; Complete Time: 10:48 04/03 10:00 Order name: D-Dimer; Complete Time: 10:48 04/03 10:00 Order name: Magnesium; Complete Time: 10:48 04/03 10:00 Order name: PT-INR; Complete Time: 10:48 04/03 10:00 Order name: Troponin HS; Complete Time: 10:48 04/03 10:00 Order name: XRAY Chest (1 view); Complete Time: 10:48 04/03 10:49 Order name: Extremity Venous Uni Ltd US; Complete Time: 11:58 04/03 10:00 Order name: Cardiac monitoring; Complete Time: 10:14 04/03 10:00 Order name: EKG - Nurse/Tech; Complete Time: 13:06 04/03 10:00 Order name: IV Saline Lock; Complete Time: :04/03 10:00 Order name: Labs collected and sent; Complete Time: 04/03 10:00 Order name: O2 Per Protocol; Complete Time: 04/03 10:00 Order name: O2 Sat Monitoring; Complete Time: bo Administered Medications: 10:29 Drug: Ondansetron IVP 4 mg IVP once; over 2 minutes Route: IVP; Site: right antecubital;bp 13:06 Follow up: Response: No adverse reaction bp 10:29 Drug: morphine IVP or IV 4 mg IVP once over 4 mins Route: IVP; Infused Over: 4 mins; bp Site: right antecubital; 13:06 Follow up: Response: No adverse reaction bp 12:30 Drug: traMADol PO 100 mg PO once Route: PO; bp 13:06 Follow up: Response: No adverse reaction bp Disposition Summary: 04/03/24 12:24 Discharge Ordered Notes: Location: Home bo1 Problem: new bo1 Symptoms: have improved bo1 Condition: Stable bo1 Diagnosis - Type 2 diabetes mellitus with diabetic neuropathy, unspecified bo1 - Pain in leg, unspecified bo1 Followup: bo1 - With: Private Physician - When: Upon discharge from the Emergency Department - Reason: Recheck today's complaints, Continuance of care Discharge Instructions: - Discharge Summary Sheet bo1 - Neuropathic Pain bo1 - Diabetic Neuropathy bo1 Forms: - Medication Reconciliation Form bo1 - Antibiotic Education bo1 - Prescription Opioid Use bo1 - Patient Portal Instructions bo1 - Leadership Thank You Letter bo1 Prescriptions: - Tramadol 50 mg Oral tablet - take 1 tablet ORAL route every 6 hours Take 1-2 tabs PO every 6 hours, max 8 bo1 per day; 25 tablet; Refills: 0, Product Selection Permitted Signatures: Dispatcher [facility] Aneesh Cordova RN RN Amelia Caal RN RN ap3 Stiven Gutierrez MD MD bo1 Corrections: (The following items were deleted from the chart) 10:00 10:00 Chest Single View+RAD.RAD.[email or web address] ordered. EDMS EDMS 10:50 10:50 Extremity Venous Uni Ltd+US.RAD.[email or web address] ordered. EDMS EDMS
--- NOTE | 2024-04-03 12:25 | ER ---
Nurse's Notes [facility] Name: Eloise Flynn Age: 68 yrs Sex: Female : 1955 Arrival Date: 04/03/2024 Time: 09:38 Bed 19 Private MD: Diagnosis: Type 2 diabetes mellitus with diabetic neuropathy, unspecified;Pain in leg, unspecified Presentation: 04/03 09:56 Chief complaint: Patient states: she has had right leg pain for approx one week, that ap3 is also located behind the right knee. patient currently rates her pain as a 10/10 on the pain scale. Coronavirus screen: At this time, the client does not indicate any symptoms associated with coronavirus-19. Ebola Screen: No symptoms or risks identified at this time. Initial Sepsis Screen: Does the patient meet any 2 criteria? No. Patient's initial sepsis screen is negative. Does the patient have a suspected source of infection? No. Patient's initial sepsis screen is negative. Risk Assessment: Do you want to hurt yourself or someone else? Patient reports no desire to harm self or others. Onset of symptoms was March 27, 2024. Transition of care: patient was not received from another setting of care. 09:56 Method Of Arrival: Wheelchair ap3 09:56 Acuity: MAIN 3 ap3 Triage Assessment: 09:59 General: Appears uncomfortable, Behavior is calm, cooperative, appropriate for age. ap3 Pain: Complains of pain in right leg Pain currently is 10 out of 10 on a pain scale. Neuro: Level of Consciousness is awake, alert, obeys commands, Oriented to person, place, time, situation, Appropriate for age. Cardiovascular: Patient's skin is warm and dry. Respiratory: Airway is patent Respiratory effort is even, unlabored, Respiratory pattern is regular, symmetrical. Historical: - Allergies: 09:59 PENICILLINS; ap3 - PMHx: 09:59 Asthma; diabetes mellitus; Hypertension; ap3 - Immunization history:: Client reports receiving the 2nd dose of the Covid vaccine, Flu vaccine is not up to date. - Infectious Disease History:: Denies. - Social history:: Smoking status: Patient denies any tobacco usage or history of. Screenin:00 Abuse screen: Denies threats or abuse. Nutritional screening: No deficits noted. ap3 Tuberculosis screening: No symptoms or risk factors identified. 13:07 [facility] ED Fall Risk Assessment (Adult) History of falling in the last 3 months, bp including since admission No falls in past 3 months (0 pts) Confusion or Disorientation No (0 pts) Intoxicated or Sedated No (0 pts) Impaired Gait No (0 pts) Mobility Assist Device Used No (0 pt) Altered Elimination No (0 pt) Score/Fall Risk Level 0 - 2 = Low Risk Oriented to surroundings. Assessment: 10:00 General: Appears in no apparent distress. uncomfortable, obese, Behavior is bp cooperative, appropriate for age, anxious. 10:50 Reassessment: Patient appears in no apparent distress at this time. Patient is alert, bp oriented x 3, equal unlabored respirations, skin warm/dry/pink. 13:06 Reassessment: DC VIA WHEELCHAIR WITH FAMILY. bp Vital Signs: 09:56 BP 144 / 71; Pulse 72; Resp 17; Temp 98.2; Pulse Ox 100% on R/A; Weight 124.28 kg; bp Height 5 ft. 0 in. ; Pain 10/10; 10:46 BP 147 / 73; Pulse 58; Resp 15; Pulse Ox 99% ; bp 13:06 BP 144 / 71; Pulse 61; Resp 16; Pulse Ox 99% ; bp 09:56 Body Mass Index 53.51 (124.28 kg, 152.4 cm) bp 09:56 Pain Scale: Adult bp ED Course: 09:43 Patient arrived in ED. ra3 09:46 Aneesh Levin, SHELLI is Primary Nurse. bp 09:53 Stiven Gutierrez MD is Attending Physician. bo1 09:59 Triage completed. ap3 10:00 Arm band placed on right wrist. ap3 10:12 Initial lab(s) drawn, by mo, sent to lab. Inserted saline lock: 20 gauge in right ty antecubital area, using aseptic technique. Blood collected. Flushed with 10 mL NS. 10:18 XRAY Chest (1 view) In Process Unspecified. EDMS 10:50 Patient has correct armband on for positive identification. bp 11:34 Extremity Venous Uni Ltd US In Process Unspecified. EDMS 13:07 Provided Education on: NA. bp 13:07 No provider procedures requiring assistance completed. IV discontinued, intact, bp bleeding controlled, No redness/swelling at site. Pressure dressing applied. Administered Medications: 10:29 Drug: Ondansetron IVP 4 mg IVP once; over 2 minutes Route: IVP; Site: right antecubital;bp 13:06 Follow up: Response: No adverse reaction bp 10:29 Drug: morphine IVP or IV 4 mg IVP once over 4 mins Route: IVP; Infused Over: 4 mins; bp Site: right antecubital; 13:06 Follow up: Response: No adverse reaction bp 12:30 Drug: traMADol PO 100 mg PO once Route: PO; bp 13:06 Follow up: Response: No adverse reaction bp Outcome: 12:24 Discharge ordered by MD. foy 13:07 Discharged to home via wheelchair, with family, bp 13:07 Condition: stable 13:07 Discharge instructions given to patient, Instructed on discharge instructions, follow up and referral plans. Demonstrated understanding of instructions, follow-up care, medications, Prescriptions given X 1, 13:08 Patient left the ED. bp Signatures: Dispatcher [employer] EDMS Aneesh Levin RN RN bp Amelia Valdez RN RN ap3 Kaity Mondragon ra3 Hany Aguila Benjamin, MD MD bo1 Corrections: (The following items were deleted from the chart) 10:28 09:56 Pulse 72bpm; Resp 17bpm; Pulse Ox 100% RA; Temp 98.2F; 124.28 kg; Height 5 ft. 0 bp in.; BMI: 53.5; Pain 10/10, Adult; ap3
[2024-04-03] MEDS ORDERED: TRAMADOL HCL 50 MG TAB ONE (12:39)
[2024-04-03 13:17] VITALS: TEMP 98.2
[2024-04-03 13:27] VITALS: O2SAT 99
[2024-04-03 13:33] VITALS: BP 144/71
== END 2024-04-03 13:08 | disposition home or self-care (01) ==
LOC: ER 09:38
DX: E11.40 Type 2 diabetes mellitus with diabetic neuropathy, unspecified (principal)
CPT/HCPCS: 85025; 80048; 36415; 83735; 85610; 85379; 84484; 71045; 93971; 96375; 96374; 99284; J2405